=== PATIENT | female | born 1975 | race Caucasian/White ===

== ENCOUNTER 2018-02-08 15:56 | Inpatient (IN) ==
[2018-02-08] MEDS ORDERED: Acetaminophen 325 MG Tablet PO PRN (22:36)
--- NOTE | 2018-02-08 23:07 | P.HPIM ---
History of Present Illness Primary Care Physician: UNKNOWN History of Present Illness: 42-year-old female with a history of hypertension,'s anxiety and substance abuse was a transfer from [facility] accepted by Dr. Harrell to be evaluated by hand surgery for a left hand and forearm infection and abscess formation. Patient was treated at [facility] and had an I&D completed to the left hand, forearm and antecubital area after injecting opium, Dilaudid as well as cocaine into the site where the abscess formed. Cultures did grew Streptococcus pyogenes and MRSA, patient was treated with Zosyn and Zyvox. Patient examined on arrival and patient is complaining of 10/10, throbbing, constant pain the the left hand with radiation up her arm, worse with movement and better with pain medication, with associate fevers. Patient has a very nasty wound to the right hand with purulent drainage and some pin point necrotic areas. Denies any chest pain or sob. Inpatient Certification: I certify that the inpatient services were ordered in accordance with Medicare regulations governing the order. This includes certification that hospital inpatient services are reasonable and necessary and in the case of services not specified as inpatient-only under 42 CFR 419.22(n), that they are appropriately provided as inpatient services in accordance to with the 2-midnight benchmark under 43 CFR 412.3(e) Estimated Total Length of Stay (Days): 3 Plans for Post Hospital Care: Home [facility] - History History Provided By: Patient - Medical History Medical History: Medical History (Last Updated 02/08/18 @ 23:00 by BRANDON Rahman) Anxiety Genital herpes HTN (hypertension) History of hysterectomy Shingles Substance abuse - Surgical History Surgical History: Surgical History (Last Updated 02/08/18 @ 22:36 by BRANDON Rahman) History of cholecystectomy History of incision and drainage - Tobacco History Second Hand Smoke Exposure: Yes Tobacco Use In Past 30 Days: Yes Smoking Status: Current every day smoker Tobacco Type: Cigarettes - Alcohol History How Often Do You Have a Drink Containing Alcohol: Monthly or less - Substance Use History Substance History: Past History - Substance Use Type Crack/Cocaine Status: Sustained Remission Route Used: Inhalation Marijuana Status: Early Remission - Travel History Recent Travel in the [place] Within the Last 8 Weeks: No Recent Travel Out of the Country Within the Last 8 Weeks: No Medications and Allergies Allergies Allergy/AdvReac Type Severity Reaction Status Date / Time chocolate flavor [Chocolate] AdvReac Mild Rash Verified 02/08/18 23:38 latex AdvReac Mild Rash Verified 02/08/18 23:38 Home Medications Medication Instructions Recorded Confirmed Type ibuprofen 800 mg PO QID PRN 02/08/18 02/08/18 History Exam Vital signs: Intake & Output 02/08/18 02/08/18 02/09/18 06:59 18:59 06:59 Weight 64.9 kg Other: Weight On Admission 64.9 kg Narrative: GENERAL: This is a well-nourished, well-developed patient, who appears in pain. SKIN: Top left hand opened abscess with purulent drainage, multiple pin point necrotic areas CARDIOVASCULAR: Regular rate and rhythm without murmurs, gallops, or rubs. RESPIRATORY: Clear to auscultation. Breath sounds equal bilaterally. No wheezes , rales, or rhonchi. GASTROINTESTINAL: Abdomen soft, non-tender, nondistended. Normal active bowel sounds MUSCULOSKELETAL: Extremities without clubbing, cyanosis, or edema. NEURO: Alert & Oriented x4 to person, place, time, situation. Moves all ext x4 Caprini VTE Risk Assessment Caprini VTE Risk Assessment: Moderate/High Risk (score >= 2) Caprini Risk Assessment Model: Point Value = 1 Point Value = 2 Point Value = 3 Point Value = 5 Age 41-60 Minor surgery BMI > 25 kg/m2 Swollen legs Varicose veins or History of unexplained or recurrent spontaneous Oral contraceptives or hormone replacement Sepsis (< 1 month) Serious lung disease, including pneumonia (< 1 month) Abnormal pulmonary function Acute myocardial infarction Congestive heart failure (< 1 month) History of inflammatory bowel disease Medical patient at bed rest Age 61-74 Arthroscopic surgery Major open surgery (> 45 min) Laparoscopic surgery (> 45 min) Malignancy Confined to bed (> 72 hours) Immobilizing plaster cast Central venous access Age >= 75 History of VTE Family history of VTE Factor V Leiden Prothrombin [id number] Lupus anticoagulant Anticardiolipin antibodies Elevated serum homocysteine Heparin-induced thrombocytopenia Other congenital or acquired thrombophilia Stroke (< 1 month) Elective arthroplasty Hip, pelvis, or leg fracture Acute spinal cord injury (< 1 month) Prophylaxis Regimen: Total Risk Factor Score Risk Level Prophylaxis Regimen 0-1 Low Early ambulation 2 Moderate Order ONE of the following: *Sequential Compression Device (SCD) *Heparin 5000 units SQ BID 3-4 Higher Order ONE of the following medications: *Heparin 5000 units SQ TID *Enoxaparin/Lovenox 40 mg SQ daily (WT < 150 kg, CrCl > 30 mL/min) *Enoxaparin/Lovenox 30 mg SQ daily (WT < 150 kg, CrCl > 10-29 mL/min) *Enoxaparin/Lovenox 30 mg SQ BID (WT < 150 kg, CrCl > 30 mL/min) AND/OR *Sequential Compression Device (SCD) 5 or more Highest Order ONE of the following medications: *Heparin 5000 units SQ TID (Preferred with Epidurals) *Enoxaparin/Lovenox 40 mg SQ daily (WT < 150 kg, CrCl > 30 mL/min) *Enoxaparin/Lovenox 30 mg SQ daily (WT < 150 kg, CrCl > 10-29 mL/min) *Enoxaparin/Lovenox 30 mg SQ BID (WT < 150 kg, CrCl > 30 mL/min) AND *Sequential Compression Device (SCD) Assessment and Plan - Plan Right hand abscess, purulent drainage with some possible necrotic areas Requiring hand surgery evaluation, cultures grew Streptococcus pyogeneses and MRSA -Consult hand surgery -Continue IV antibiotics Zosyn, changed Zyvox to Vancomycin due to severity of wound -Blood cultures ordered -Pain management with p.o. Percocet and IV morphine -Labs in a.m. -Consult infectious disease -N.p.o., IVF -MRI ordered to r/o osteomyelitis Genital herpes -Patient so far has been treated with Valtrex for 3 days, continue p.o. Valtrex for 2 more days. Tobacco and substance abuse -Encouraged to quit -Cessation counseling DVT prophylaxis: scds, hold chemical until after surgery Discussed Condition With: Patient and RN H&P: Quality - VTE Deep Vein Thrombosis/Pulmonary Embolism Present on Admission: No
[2018-02-08] MEDS: valACYclovir 500 MG Tab PO SCH (23:28)
[2018-02-08] MEDS: Morphine Inj 4 MG/ML Vial IV.PUSH PRN (23:28)
[2018-02-08] MEDS: Sod Chloride 0.9% Inj 1,000 ML IV.CONT SCH (23:29)
[2018-02-08] MEDS: Piperacil/Tazo 3.375 GM Premix 50 ML IV.SIG SCH (23:33)
[2018-02-08] MEDS ORDERED: Vancomycin Consult Pharmacy OTHER SCH (23:37)
[2018-02-09] MEDS ORDERED: Vancomycin Inj 1,000 MG in Sodium Chlor 0.9% Inj 250 ML IV.SIG ONE ×2
[2018-02-09 00:50] LABS: Baso # (Auto) 0.1 th/mm3 (0.0-0.2); Baso % (Auto) 0.7 % (0.0-2.0); Eos # (Auto) 0.2 th/mm3 (0.0-0.4); Eos % (Auto) 2.1 % (0.0-4.0); Hematocrit 27.1 % (35.0-46.0); Hemoglobin 9.2 gm/dL (11.6-15.3); Lymph # (Auto) 3.7 th/mm3 (1.0-4.8); Lymph % (Auto) 33.2 % (9.0-44.0); Mean Corpuscular HGB Conc 34.1 % (32.0-36.0); Mean Corpuscular Hemoglobin 32.1 pg (27.0-34.0); Mean Corpuscular Volume 94.1 fL (80.0-100.0); Mean Platelet Volume 6.1 fL (7.0-11.0); Neut # (Auto) 6.1 th/mm3 (1.8-7.7); Platelet Count 780 th/mm3 (150-450); Red Blood Count 2.88 mil/mm3 (4.00-5.30); Red Cell Distribution Width 13.5 % (11.6-17.2); White Blood Count 11.1 th/mm3 (4.0-11.0)
[2018-02-09 01:18] LABS: Calcium 8.3 mg/dL (8.5-10.1); Carbon Dioxide 24.1 meq/L (21.0-32.0); Potassium 3.8 meq/L (3.5-5.1)
[2018-02-09] MEDS: Morphine Inj 4 MG/ML Vial IV.PUSH PRN ×4 (02:35→22:07)
[2018-02-09] MEDS: valACYclovir 500 MG Tab PO SCH ×3 (05:45→22:08)
[2018-02-09] MEDS: Piperacil/Tazo 3.375 GM Premix 50 ML IV.SIG SCH ×4 (06:22→22:08)
--- NOTE | 2018-02-09 09:10 | P.PNIM ---
Subjective Interval history: Complaining significant pain over the left arm and hand. Was over at [facility] since last Sunday states that orthopedic surgery took her to the OR for incision and drainage however area has not improved.. Physical Exam Vital signs: Vital Signs 02/09/18 00:00 02/09/18 01:13 02/09/18 04:00 Temperature 98.4 F 98.5 F Pulse Rate 82 80 Respiratory Rate 17 17 17 Blood Pressure 125/63 127/65 Pulse Oximetry 98 98 Intake & Output 02/08/18 02/09/18 02/09/18 18:59 06:59 18:59 Intake Total 300 / 300 50 / 50 Balance 300 / 300 50 / 50 Weight 64.3 kg Intake: IV 300 / 300 50 / 50 Zosyn 3.375 GM Premix 50 ML @ 50 / 50 50 / 50 100 mls/hr IV.SIG Q8H [facility] Rx#: [id number] Vancomycin Inj 1,000 MG In NS 250 / 250 Inj 250 ML @ 250 mls/hr IV.SIG ONCE ONE Rx#:[id number] Other: Date of Last Bowel Movement 02/15/18 Weight On Admission 64.9 kg Narrative: GENERAL: This is a well-nourished, well-developed patient, in no apparent distress. CARDIOVASCULAR: Regular rate and rhythm without murmurs, gallops, or rubs. RESPIRATORY: Clear to auscultation. Breath sounds equal bilaterally. No wheezes , rales, or rhonchi. GASTROINTESTINAL: Abdomen soft, non-tender, nondistended. Normal active bowel sounds MUSCULOSKELETAL: Bandage over the left upper arm and hand with necrotic skin changes throughout the left dorsum of the hand forearm NEURO: Alert & Oriented x4 to person, place, time, situation. Moves all ext x4 Results - Labs CBC & Chem 7: 02/09/18 00:20 02/09/18 00:20 Laboratory Results - last 24 hr 02/09/18 02/09/18 00:20 00:20 WBC 11.1 H RBC 2.88 L Hgb 9.2 L Hct 27.1 L MCV 94.1 MCH 32.1 MCHC 34.1 RDW 13.5 Plt Count 780 H MPV 6.1 L Neut % (Auto) 55.0 Lymph % (Auto) 33.2 Hudspeth % (Auto) 9.0 H Eos % (Auto) 2.1 Baso % (Auto) 0.7 Neut # (Auto) 6.1 Lymph # (Auto) 3.7 Hudspeth # (Auto) 1.0 H Eos # (Auto) 0.2 Baso # (Auto) 0.1 WBC Differential . Differential Comment Auto diff final Sodium 141 Potassium 3.8 Chloride 107 Carbon Dioxide 24.1 Anion Gap 10 BUN 11 Creatinine 0.91 Estimated GFR 68 L Random Glucose 98 Calcium 8.3 L Assessment and Plan - Plan 42-year-old white female with a history of IV drug abuse was transferred from [facility] after being evaluated for left hand and arm abscess with surgical incision and drainage by orthopedic surgeon sent to [place] for hand surgery evaluation. 1. Left hand and arm abscess, purulent drainage with necrotic areas Requiring hand surgery evaluation, previous cultures grew Streptococcus pyogeneses and MRSA -Consult hand surgery -Continue IV antibiotics Zosyn, changed previous Zyvox to Vancomycin -Blood cultures ordered -Pain management with p.o. Percocet and IV morphine -Consult infectious disease -N.p.o., IVF -MRI ordered to r/o osteomyelitis 2. Genital herpes -Patient so far has been treated with Valtrex for 3 days, continue p.o. Valtrex for 2 more days. 3. Tobacco and substance abuse -Encouraged to quit -Cessation counseling DVT prophylaxis: scds, hold chemical until after surgery
[2018-02-09] MEDS ORDERED: Vancomycin Consult Pharmacy 1 EACH OTHER SCH (09:15)
[2018-02-09] MEDS: oxyCODONE/Acetaminophen 10/325 Tablet PO PRN ×2 (09:41→20:20)
[2018-02-09] MEDS: Sod Chloride 0.9% Inj 1,000 ML IV.CONT SCH ×3 (09:41→20:17)
--- NOTE | 2018-02-09 11:29 | MB ---
cc: Jose Guadalupe Izquierdo MD DATE: 02/09/2018 REASON FOR CONSULTATION: Left hand infection. HISTORY OF PRESENT ILLNESS: The patient is a 42-year-old right-hand dominant female who was transferred from an outside facility, [facility], by Dr. Lu to [place] for hand surgery and evaluation of left hand infection. The patient states about a week ago she developed infection of the left upper extremity after a dresser fell on her hand. She was seen by orthopedics and had incision and drainage of left upper extremity abscesses. The patient was found to have necrotic skin over the dorsal aspect of the left hand. Because of the possibility of exposure of the extensor tendons on the dorsal aspect of the left hand she was transferred from [facility], accepted by Dr. Lu, for hand surgery evaluation at [place]. Complains of pain. She also complains of intermittent tingling and numbness involving the fingertips. Denies any fever. She also complains of disturbance of sleep. The patient also states her friend injected her with Dilaudid over the region for her help with the pain. PAST MEDICAL HISTORY: Noted significant for hypertension, anxiety, and she has a history of substance abuse. PAST SURGICAL HISTORY: Significant for hysterectomy. PHYSICAL EXAMINATION: GENERAL: The patient is alert, oriented x3. EXTREMITIES: Examination of left upper extremity reveals dressings across the left hand, wrist, and forearm. Examination after removal of dressing reveals necrotic skin over the dorsal aspect of the hand covering the entire dorsal aspect of the hand. Another patch of necrotic skin noted over the dorsal aspect of the wrist. She also has swelling and redness along the extensor carpi ulnaris tendon sheath. She also has sutured multiple incision and drainage wounds over the forearm and along the lateral aspect of the lower arm each measuring about 4-5 cm. Clear serous drainage noted from the incision sites. Purulence noted from the dorsal aspect of the hand region necrotic skin edges. She has swelling of the fingers with surrounding erythema. She has tenderness along the ECU tendon sheath. Wrist flexion and extension is associated with pain and is limited. On making a fist, she has limitation of flexion of the fingers and is unable to make a fist. She has intact extension of the fingers which is associated with pain. Forearm compartments appear to be supple. Elbow flexion is full and painless. Elbow extension is associated with the pain and is limited. LABORATORY DATA: Reviewed. She has a white count of 11.1 and a neutrophil shift of 55%. The patient is waiting for MRI scan of the left hand. ASSESSMENT: A 42-year-old female with necrotic skin over dorsal aspect of the left hand and wrist with infection status post multiple incision and drainage of the abscess of left forearm and elbow region. PLAN: I had a discussion with the patient regarding the necrotic skin over the dorsal aspect of the hand with a likely infection of the extensor tendons underneath. The patient was informed after debridement and possibility of extensor tendons will be exposed and she would need a wound VAC and flap with skin graft coverage of the wound after debridements. She does not have any evidence of compartment syndrome of the forearm. She would just need cleaning up of the I and D wounds of the forearm and arm. The patient also was informed about possibility of multiple procedures for her left hand and wrist. Risk and benefits of the procedure were explained to the patient. The patient is consented for incision and drainage, debridement of left hand and wrist. Continue with IV antibiotics. We will keep the patient n.p.o. Jose Guadalupe Izquierdo MD SE/cindy , 09:58 AM , 10:09 AM [email or web address]
[2018-02-09] MEDS ORDERED: Lidocaine PF 1% Inj 5 ML Syringe INFILTRATN ONE (12:00)
[2018-02-09] MEDS ORDERED: Vancomycin Inj 1,000 MG in Sodium Chlor 0.9% Inj 250 ML IV.SIG SCH (12:00)
[2018-02-09] MEDS ORDERED: Neomycin/Polymyxin G.U. Irrigant 1 ML Ampul ONE (13:14)
[2018-02-09] MEDS ORDERED: HYDROmorphone PF Inj 2 MG/ML Vial ONE (14:59)
[2018-02-09] MEDS ORDERED: fentaNYL Citrate Inj 100 MCG/2 ML Ampul ONE (15:08)
[2018-02-09] MEDS ORDERED: Morphine Inj 4 MG/ML Vial ONE (15:08)
--- NOTE | 2018-02-09 15:08 | P.OP ---
- Preoperative Diagnosis (1) Abscess of left hand including fingers (2) Abscess of tendon sheath, left forearm - Postoperative Diagnosis (1) Abscess of tendon sheath, left forearm (2) Abscess of left hand including fingers Postoperative Diagnosis: extensor tenosynovitis left forearm, wrist and hand 4th and 6th extensor compartments Date of procedure: 02/10/18 Procedure: exploration, incision and drainage, excisional debridement skin, subcutaneous tissue, extensor tenosynovium 4th and 6th compartments left hand /wrist and forearm Anesthesia: GETA, MAC, other (general with LMA) Surgeon: Jose Guadalupe Izquierdo MD Estimated blood loss (mL): 25 Tourniquet time (min): 55 Pathology: other (tissue for c/s)
[2018-02-09] MEDS ORDERED: *morphine SULFATE 4 MG/ML PERIprocedure ONLY ONE (15:23)
--- NOTE | 2018-02-09 17:02 | MP ---
cc: Jose Guadalupe Izquierdo MD DATE OF OPERATION: 02/09/2018 PREOPERATIVE DIAGNOSIS: Abscess, left hand and wrist. POSTOPERATIVE DIAGNOSIS: Abscess with necrotic tissues left hand with finger and left wrist and forearm with extensor tenosynovitis, fourth and sixth compartments. PROCEDURE: Incision and drainage and excisional debridement of skin and subcutaneous tissue and extensor tenosynovium 4th and 6th compartments left wrist/hand forearm and wound VAC application. SURGEON: Jose Guadalupe Izquierdo MD ANESTHESIA: General. ESTIMATED BLOOD LOSS: About 25 mL TOURNIQUET TIME: 55 minutes at 250 mmHg. SPECIMENS: Sent for culture and sensitivity from the left wrist region. INDICATIONS: The patient is a 42-year-old female transferred from an outside facility with complaints of abscess and infection of the left hand. The patient initially presented to the outside facility with pain, swelling involving the left upper extremity. She had incision and drainage of abscess of the forearm and arm. She was found to have necrosis of the dorsal aspect of the skin of the hand and she was transferred to [facility] for further management. The patient gives a history of injection of Dilaudid to the region by her friend. She also has a history of substance abuse. PHYSICAL EXAMINATION: She had necrosis of the dorsal aspect of the hand involving the whole surface under the necrotic wound over the dorsal aspect of the wrist. Multiple I and D's of the forearm with sutures were noted. She also had purulent drainage from the hand and wrist region. Range of motion of the fingers was limited and painful. The patient was consented for incision and drainage of left hand/wrist and forearm. The patient was explained the risks and benefits of the procedure. The patient was also informed that she would need multiple procedures including skin grafting and flap closure. DESCRIPTION OF PROCEDURE: The patient was brought to the operating room under general anesthesia. The left upper extremity was sterilely prepped and draped after an elevation, tourniquet inflated to 250 mmHg. Attention was initially directed to the wrist region. She had necrotic wound over the dorsal aspect of the wrist, which was excised. On exploration, there was evidence of involvement of the extensor tenosynovium and fourth compartment in the distal forearm. The extensor retinaculum was released partially at the proximal aspect and on further exploration, there was evidence of extensor tenosynovitis involving the fourth extensor compartment, which was debrided. There was extensive inflammatory tissue covering the extensor retinaculum extending all the way to the ulnar aspect of the wrist. There was also evidence of bulging of the extensor carpi ulnaris tendon compartment and so decision was made to release it at the distal aspect and there was minimal purulence within that region which was washed out. Attention was then directed to the hand region. There was extensive necrotic skin and subcutaneous tissue, which was excised on the whole of the dorsal aspect of the hand. Skin and subcutaneous tissue were necrosed. There is also evidence of purulent and devitalized tissue over the dorsal aspect of the hand extending over the dorsal aspect of the MP joints of the index, middle and ring fingers. Excisional debridement of necrotic tissue, which included skin, subcutaneous tissue and extensor tenosynovium was carried out. The middle finger extensor tendon was exposed toward the dorsal aspect of the hand. There was a bridge of skin left between the wrist and the hand wound, which was left intact. Thorough wash of the wounds were carried out using normal saline mixed with hydrogen peroxide. This was then followed by normal saline mixed with irrigant. About a liter of solution was used. Bleeding points were cauterized with bipolar cautery. Tourniquet was deflated and bleeding points were cauterized with bipolar cautery. The tourniquet was then reinflated after about 5-10 minutes for application of a wound VAC. Wound VAC was then applied including white foam and black foam and was held in place with a pressure of about 100 mmHg in a continuous fashion. Tourniquet was deflated at 55 minutes. She had good distal circulation of release of tourniquet. A Sof-Rol and Wayne wrap were applied over the hand and the forearm. The patient was recovered and sent to recovery in stable condition. We will continue with IV antibiotics. We will bring the patient tomorrow again for wash, debridement and wound VAC change. Jose Guadalupe Izquierdo MD SE/antonia , 03:15 PM , 03:27 PM SUSANNE
[2018-02-09] MEDS: Vancomycin Inj 1,000 MG in Sodium Chlor 0.9% Inj 250 ML IV.SIG SCH (17:13)
[2018-02-10] MEDS: oxyCODONE/Acetaminophen 10/325 Tablet PO PRN ×4 (00:10→22:34)
[2018-02-10] MEDS: Morphine Inj 4 MG/ML Vial IV.PUSH PRN ×4 (01:22→12:30)
[2018-02-10] MEDS: valACYclovir 500 MG Tab PO SCH ×2 (06:01→13:20)
[2018-02-10] MEDS: Piperacil/Tazo 3.375 GM Premix 50 ML IV.SIG SCH ×3 (06:02→22:34)
[2018-02-10] MEDS: Sod Chloride 0.9% Inj 1,000 ML IV.CONT SCH ×3 (06:04→22:35)
[2018-02-10] MEDS ORDERED: HYDROmorphone PF Inj 2 MG/ML Vial ONE (10:36)
[2018-02-10] MEDS ORDERED: Ketamine Inj 50 MG/5 ML Syringe IV.PUSH ONE (10:37)
--- NOTE | 2018-02-10 11:56 | P.PNIM ---
Subjective Interval history: Complaining a lot of pain Physical Exam Vital signs: Vital Signs 02/09/18 14:58 02/09/18 15:00 02/09/18 15:15 Temperature 98.5 F Pulse Rate 99 H 96 H 88 Respiratory Rate 12 20 24 Blood Pressure 144/77 H 134/77 131/61 Pulse Oximetry 95 98 95 02/09/18 15:40 02/09/18 15:59 02/09/18 16:29 Temperature 98.5 F Pulse Rate 80 Respiratory Rate 16 16 16 Blood Pressure 125/61 Pulse Oximetry 98 02/09/18 18:19 02/09/18 20:00 02/10/18 00:00 Temperature 97.9 F 97.6 F Pulse Rate 85 82 Respiratory Rate 16 18 18 Blood Pressure 138/71 146/78 H Pulse Oximetry 96 99 02/10/18 04:00 02/10/18 08:00 02/10/18 09:07 Temperature 98.3 F 98.7 F Pulse Rate 69 67 Respiratory Rate 18 20 16 Blood Pressure 118/58 L 103/51 L Pulse Oximetry 98 98 02/10/18 10:19 Temperature Pulse Rate Respiratory Rate 16 Blood Pressure Pulse Oximetry Intake & Output 02/09/18 02/10/18 02/10/18 18:59 06:59 18:59 Intake Total 3350 / 3350 2099 / 2099 Output Total 50 / 50 Balance 3300 / 3300 2099 / 2099 Weight 67.4 kg Intake: IV 2350 / 2350 2099 / 2100 NS Inj 1,000 ML @ 100 mls/hr IV 1999 / 1999 .CONT .Q10H [facility] Rx#:[id number] Zosyn 3.375 GM Premix 50 ML @ 100 / 100 100 / 100 100 mls/hr IV.SIG Q8H [facility] Rx#: [id number] Vancomycin Inj 1,000 MG In NS 250 / 250 Inj 250 ML @ 250 mls/hr IV.SIG Q18H [facility] Rx#:[id number] Anesthesia Amount 1000 / 1000 Output: Estimated Blood Loss 50 / 50 Other: Mode Setting Left Arm Continuous Continuous # Voids 2 Date of Last Bowel Movement 02/15/18 02/02/18 # Bowel Movements 1 Narrative: GENERAL: This is a well-nourished, well-developed patient, in no apparent distress. CARDIOVASCULAR: Regular rate and rhythm without murmurs, gallops, or rubs. RESPIRATORY: Clear to auscultation. Breath sounds equal bilaterally. No wheezes , rales, or rhonchi. GASTROINTESTINAL: Abdomen soft, non-tender, nondistended. Normal active bowel sounds MUSCULOSKELETAL: Bandage over the left upper arm and with wound VAC over the right dorsum of the hand NEURO: Alert & Oriented x4 to person, place, time, situation. Moves all ext x4 Results - Labs CBC & Chem 7: 02/09/18 00:20 02/09/18 00:20 Microbiology 02/09/18 00:29 Blood - Peripheral Aerobic Blood Culture - Preliminary No growth in 1 day 02/09/18 00:29 Blood - Peripheral Anaerobic Blood Culture - Preliminary No growth in 1 day 02/09/18 00:20 Blood - Peripheral Aerobic Blood Culture - Preliminary No growth in 1 day 02/09/18 00:20 Blood - Peripheral Anaerobic Blood Culture - Preliminary No growth in 1 day 02/09/18 13:35 Tissue - Wrist Gram Stain - Final Assessment and Plan - Plan 42-year-old white female with a history of IV drug abuse was transferred from [facility] after being evaluated for left hand and arm abscess with surgical incision and drainage by orthopedic surgeon sent to [place] for hand surgery evaluation. 1. Left hand and arm abscess, purulent drainage with necrotic areas Requiring hand surgery evaluation, previous cultures grew Streptococcus pyogeneses and MRSA -Consult hand surgery who performed the I&D yesterday -Continue IV antibiotics Zosyn, changed previous Zyvox to Vancomycin, await infectious disease consultation -Blood cultures ordered shows no growth to date -Pain management with p.o. Percocet and IV morphine -N.p.o. for re-debridement today, IVF 2. Genital herpes -Patient so far has been treated with Valtrex for 3 days, continue p.o. Valtrex for 2 more days. 3. Tobacco and substance abuse -Encouraged to quit -Cessation counseling DVT prophylaxis: scds, hold chemical until after surgery Discharge Planning: Transfer back to [facility] when cleared by hand surgery.
[2018-02-10] MEDS ORDERED: Lidocaine PF 1% Inj 5 ML Syringe INFILTRATN ONE (12:00)
[2018-02-10] MEDS: Vancomycin Inj 1,000 MG in Sodium Chlor 0.9% Inj 250 ML IV.SIG SCH (12:09)
--- NOTE | 2018-02-10 15:45 | P.CONID ---
History of Present Illness Service: Infectious disease Consult date: 02/10/18 Requesting Physician: Leila Rosario Reason for Consult: Evaluation and management of left hand infection Primary Care Provider: UNKNOWN History of Present Illness: Ms. Fitzgerald is a 42-year-old female with past medical history significant for hypertension, anxiety and substance abuse(denies any IV drug abuse but reports smoking and/or snorting different agents like cocaine and marijuana). With this background patient reports a piece of furniture fell on her hand and due to excruciating pain she let her friend inject intravenous Dilaudid into her left hand at the site of the injury. Subsequently this area of the hand became increasingly swollen red with areas of blackening and so she presented to the local hospital in [place] which is [facility]. Patient was accepted by Dr. Lu for transfer for hand surgery. Patient was evaluated by of hand surgery and underwent debridement in the operating room yesterday. In fact patient reports to me there is a plan for further debridement in the OR today. Intraoperative cultures are currently pending and patient has been started on empiric antibiotics. Prior to the patient arriving at [facility] she was treated with Zosyn as well as Zyvox at the other hospital. Infectious disease consulted for evaluation and management of left hand abscess , cellulitis possibly Tenosynovitis. Patient denies any prior drug abuse Denies any prior infection such as endocarditis or discitis. Denies any fevers chills or night sweats. Review of Systems All other systems reviewed negative except as stated in HPI PMFSH - History History Provided By: Patient - Medical History Medical History: Medical History (Last Updated 02/08/18 @ 23:00 by BRANDON Rahman) Abscess of left hand including fingers Anxiety HTN (hypertension) History of hysterectomy Shingles Substance abuse - Surgical History Surgical History: Surgical History (Last Updated 02/08/18 @ 22:36 by BRANDON Rahman) History of cholecystectomy History of incision and drainage - Tobacco History Second Hand Smoke Exposure: Yes Tobacco Use In Past 30 Days: Yes Smoking Status: Current every day smoker Tobacco Type: Cigarettes - Alcohol History How Often Do You Have a Drink Containing Alcohol: Monthly or less - Substance Use History Substance History: Past History - Substance Use Type Crack/Cocaine Status: Sustained Remission Route Used: Inhalation Marijuana Status: Early Remission - Travel History Recent Travel in the [place] Within the Last 8 Weeks: No Recent Travel Out of the Country Within the Last 8 Weeks: No Medications and Allergies Active Medications: Active Medications Acetaminophen (Tylenol) 650 mg PO Q4H PRN PRN Reason: Temp > 100.4 Sodium Chloride (Ns Inj) 1,000 mls @ 100 mls/hr IV.CONT .Q10H [facility] Last Admin: 02/10/18 06:04 Dose: 100 mls/hr Piperacillin/Tazobactam/Dextrose (Zosyn 3.375 Gm Premix) 50 mls @ 100 mls/hr IV.SIG Q8H [facility] Last Infusion: 02/10/18 06:46 Dose: Infused Vancomycin HCl 1,000 mg/ (Sodium Chloride) 250 mls @ 250 mls/hr IV.SIG Q18H [facility] Last Infusion: 02/10/18 13:18 Dose: Infused Miscellaneous Information ([facility] Ordered Lab Info) 1 each OTHER ONCE ONE Stop: 02/11/18 05:46 Morphine Sulfate (Morphine Inj) 4 mg IV.PUSH Q3H PRN PRN Reason: BREAKTHROUGH PAIN Last Admin: 02/10/18 12:30 Dose: 4 mg Ondansetron HCl (Zofran Inj) 4 mg IV.PUSH Q6H PRN PRN Reason: NAUSEA OR VOMITING Last Admin: 02/10/18 09:29 Dose: 4 mg Oxycodone/Acetaminophen (Percocet 10/325 Mg) 1 tab PO Q4H PRN PRN Reason: PAIN SCALE 1 TO 10 Last Admin: 02/10/18 08:02 Dose: 1 tab Pantoprazole Sodium (Protonix) 40 mg PO DAILY [facility] Last Admin: 02/10/18 08:02 Dose: 40 mg Pharmacy Profile Note (Vancomycin Consult Pharmacy) 1 each OTHER [facility] Sodium Chloride (Ns Flush) 2 ml IV.FLUSH PRN PRN PRN Reason: FLUSH AFTER USING IV ACCESS Sodium Chloride (Ns Flush) 2 ml IV.FLUSH BID [facility] Last Admin: 02/10/18 08:02 Dose: Not Given Valacyclovir HCl (Valtrex) 1,000 mg PO Q8HR [facility] Stop: 02/10/18 22:59 Last Admin: 02/10/18 13:20 Dose: Not Given Allergies Allergy/AdvReac Type Severity Reaction Status Date / Time chocolate flavor [Chocolate] AdvReac Mild Rash Verified 02/08/18 23:38 latex AdvReac Mild Rash Verified 02/08/18 23:38 Home Medications Medication Instructions Recorded Confirmed Type ibuprofen 800 mg PO QID PRN 02/08/18 02/08/18 History Exam Vital signs: Vital Signs 02/09/18 15:59 02/09/18 16:29 02/09/18 18:19 Temperature Pulse Rate Respiratory Rate 16 16 16 Blood Pressure Pulse Oximetry 02/09/18 20:00 02/10/18 00:00 02/10/18 04:00 Temperature 97.9 F 97.6 F 98.3 F Pulse Rate 85 82 69 Respiratory Rate 18 18 18 Blood Pressure 138/71 146/78 H 118/58 L Pulse Oximetry 96 99 98 02/10/18 08:00 02/10/18 09:07 02/10/18 10:19 Temperature 98.7 F Pulse Rate 67 Respiratory Rate 20 16 16 Blood Pressure 103/51 L Pulse Oximetry 98 02/10/18 13:04 Temperature Pulse Rate Respiratory Rate 16 Blood Pressure Pulse Oximetry Intake & Output 02/09/18 02/10/18 02/10/18 18:59 06:59 18:59 Intake Total 3350 / 3350 2099 / 2100 250 / 250 Output Total 50 / 50 Balance 3300 / 3300 2100 / 2100 250 / 250 Weight 67.4 kg Intake: IV 2350 / 2350 2100 / 2100 250 / 250 NS Inj 1,000 ML @ 100 mls/hr IV 1999 / 1999 .CONT .Q10H [facility] Rx#:[id number] Zosyn 3.375 GM Premix 50 ML @ 100 / 100 100 / 100 100 mls/hr IV.SIG Q8H [facility] Rx#: [id number] Vancomycin Inj 1,000 MG In NS 250 / 250 250 / 250 Inj 250 ML @ 250 mls/hr IV.SIG Q18H [facility] Rx#:[id number] Anesthesia Amount 1000 / 1000 Output: Estimated Blood Loss 50 / 50 Other: Mode Setting Left Arm Continuous Continuous Continuous # Voids 2 Date of Last Bowel Movement 02/15/18 02/02/18 02/10/18 # Bowel Movements 1 Narrative: GENERAL: Well-nourished well-developed, not in acute distress SKIN: Cool and dry, no generalized rash HEAD: Atraumatic. Normocephalic. No temporal or scalp tenderness. EYES: Pupils equal round and reactive. Scleral icterus. No injection or drainage. No petechia ENT: Nothing abnormal detected NECK: Trachea midline. Supple, nontender, no meningeal signs. CARDIOVASCULAR: HS audible. RESPIRATORY: Clear to auscultation bilaterally. GASTROINTESTINAL: Abdomen soft nontender. MUSCULOSKELETAL: Left upper extremity and postop dressing NEUROLOGICAL: Alert oriented 3. Nonfocal. Psych cooperative IV line sites ok. Results - Labs CBC & Chem 7: 02/09/18 00:20 02/09/18 00:20 Assessment and Plan - Plan Left hand abscess/cellulitis Possible infected tenosynovitis Substance abuse Recommendations: Continue Zosyn IV Continue Zyvox Please obtain medical records from [facility] to see if there are any bedside I&D procedure related cultures that can help guide his therapy at this point since patient is already on very broad-spectrum antibiotics. Follow intraoperative cultures Follow clinically Case discussed with Dr. Hernandez: preop pictures shown to me. Will need multiple debridements. dw Patient. She lives with her aunt presently. Patient's mother lives in [place] and patient hopes to join her after the completion of this medical therapy.
[2018-02-10] MEDS ORDERED: Neomycin/Polymyxin G.U. Irrigant 1 ML Ampul ONE (17:37)
--- NOTE | 2018-02-10 19:59 | P.OP ---
- Preoperative Diagnosis (1) Abscess of tendon sheath, left forearm (2) Abscess of left hand including fingers - Postoperative Diagnosis (1) Abscess of tendon sheath, left forearm (2) Abscess of left hand including fingers Date of procedure: 02/10/18 Procedure: wash, excisional debridement skin, subcutaneous tissue, extensor tenosynovium, wound vac change left wrist and hand Anesthesia: GETA Surgeon: Jose Guadalupe Izquierdo MD Estimated blood loss (mL): 5 Tourniquet time (min): 34 Pathology: none sent Operation and Findings: minimal necrotic/devitalized tissue extensor tenosynovitis minimal
[2018-02-10] MEDS ORDERED: fentaNYL Citrate Inj 100 MCG/2 ML Ampul ONE ×2 (20:09→20:10)
--- NOTE | 2018-02-10 22:43 | MP ---
cc: Jose Guadalupe Izquierdo MD DATE OF OPERATION: 02/10/2018 PREOPERATIVE DIAGNOSIS: Abscess, left hand/wrist, with extensor tenosynovitis of the left wrist and hand. POSTOPERATIVE DIAGNOSIS: Abscess, left hand/wrist, with extensor tenosynovitis. PROCEDURE PERFORMED: Excisional debridement and wound vacuum change, left wrist and hand. SURGEON: Jose Guadalupe Izquierdo MD ANESTHESIA: General. ESTIMATED BLOOD LOSS: Minimal. TOURNIQUET TIME: 34 minutes at 250 mmHg. PLASMA PROCESSING TECHNICIAN: Ruth, medical student 3. DISPOSITION: To PACU stable. INDICATIONS: The patient is a 42-year-old female status post excisional debridement of necrotic tissue and extensor tenosynovectomy, left wrist and hand, yesterday and was brought in today for repeat wash, debridement and wound VAC change. The patient initially presented with necrotic skin over the dorsal aspect of the left hand and wrist and underwent excisional debridement and extensor tenosynovectomy yesterday. She was explained the risks and benefits of the procedure. PROCEDURE IN DETAIL: The patient was brought to the operating room. Under general anesthesia, the left upper extremity was sterilely prepped and draped. The previously placed wound VAC was removed and the part was sterilely prepped and draped. After limb elevation, the tourniquet was inflated to 250 mmHg. Intraoperative findings included granulation tissue forming over the dorsal aspect of the hand and over the wrist joint region. There was evidence of exposed extensor tendon involving the middle finger over the dorsal aspect of the hand and exposed extensor tendons of the fourth compartment of the wrist joint just proximal to the extensor retinaculum. Minimal necrotic tissue and devitalized tissue was noted in the region, which was rongeured. Excisional debridement of devitalized tissue and necrotic tissue was carried out from the skin, subcutaneous tissue and extensor tenosynovium. Very minimal purulence was noted. A thorough wash of the wounds was carried out using normal saline mixed with hydrogen peroxide and then normal saline mixed with irrigant. About a liter of solution was used. Bleeding points were cauterized with bipolar cautery. The wound VAC was then applied using a black sponge. The tourniquet was deflated at 34 minutes. She had good distal circulation on release of the tourniquet. The wound VAC was held in place by Sof-Rol and bias hand wrap. The pressure setting was set at 100 mmHg in a continuous fashion. The patient was recovered and sent to recovery in stable condition. We will plan on changing the wound VAC in 2-3 days' time. We will continue with limb elevation and IV antibiotics based on ID recommendations and finger range of motion exercises. Jose Guadalupe Izquierdo MD SE/brissa/ann , 08:03 PM , 08:12 PM [email or web address]
[2018-02-11 00:40] LABS: Alanine Aminotransferase 23 U/L (10-53); Albumin 2.8 g/dL (3.4-5.0); Anion Gap 8 meq/L (5-15); Aspartate Aminotransferase 18 U/L (15-37); Blood Urea Nitrogen 9 mg/dL (7-18); Calcium 8.3 mg/dL (8.5-10.1); Carbon Dioxide 24.1 meq/L (21.0-32.0); Chloride 106 meq/L (98-107); Glomerular Filtration Rate 72 mL/min (>89); Glucose,Random 106 mg/dL (74-106); Potassium 4.2 meq/L (3.5-5.1); Sodium 138 meq/L (136-145)
[2018-02-11 00:43] LABS: Alkaline Phosphatase 71 U/L (45-117); Total Protein 7.1 g/dL (6.4-8.2)
[2018-02-11] MEDS: Sod Chloride 0.9% Inj 1,000 ML IV.CONT SCH ×3 (00:48→21:20)
[2018-02-11] MEDS: Morphine Inj 4 MG/ML Vial IV.PUSH PRN ×6 (00:50→21:12)
[2018-02-11 01:43] LABS: Hepatitis A IgM Antibody Nonreactive (Nonreactive); Hepatitits B Surface Antigen Nonreactive (Nonreactive)
[2018-02-11] MEDS: oxyCODONE/Acetaminophen 10/325 Tablet PO PRN ×6 (02:37→23:20)
[2018-02-11] MEDS ORDERED: Pharmacy Ordered Lab Info OTHER ONE (05:45)
[2018-02-11] MEDS: Piperacil/Tazo 3.375 GM Premix 50 ML IV.SIG SCH ×3 (06:13→23:21)
[2018-02-11] MEDS: Vancomycin Inj 1,000 MG in Sodium Chlor 0.9% Inj 250 ML IV.SIG SCH (06:13)
--- NOTE | 2018-02-11 12:57 | P.PNIM ---
Subjective Interval history: 42-year-old female with a history of hypertension,'s anxiety and substance abuse was a transfer from [facility] accepted by Dr. Harrell to be evaluated by hand surgery for a left hand and forearm infection and abscess formation. Patient was treated at [facility] and had an I&D completed to the left hand, forearm and antecubital area after injecting opium, Dilaudid as well as cocaine into the site where the abscess formed. Cultures did grew Streptococcus pyogenes and MRSA, patient was treated with Zosyn and Zyvox. Patient examined on arrival and patient is complaining of 10/10, throbbing, constant pain the the left hand with radiation up her arm, worse with movement and better with pain medication, with associate fevers. Patient has a very nasty wound to the right hand with purulent drainage and some pin point necrotic areas. Denies any chest pain or sob. 8-18 Complaining significant pain over the left arm and hand. Was over at [facility] since last Sunday states that orthopedic surgery took her to the OR for incision and drainage however area has not improved.. 8- Complaining a lot of pain 8-[address] ON LEFT HAND WANT NICOTINE PATCH STATES SMOKES A PACK A DAY AM LABS DW RN AND PT AND CM Physical Exam Vital signs: Vital Signs 02/10/18 13:04 02/10/18 16:00 02/10/18 20:06 Temperature 99 F 98.2 F Pulse Rate 78 88 Respiratory Rate 16 20 28 H Blood Pressure 137/70 141/78 H Pulse Oximetry 96 92 L 02/10/18 20:15 02/10/18 20:30 02/10/18 20:45 Temperature Pulse Rate 82 88 82 Respiratory Rate 20 16 16 Blood Pressure 144/85 H 155/78 H 145/72 H Pulse Oximetry 93 L 94 L 94 L 02/10/18 21:00 02/10/18 21:37 02/10/18 23:39 Temperature 98 F 98.4 F Pulse Rate 81 85 Respiratory Rate 16 18 18 Blood Pressure 139/72 143/82 H Pulse Oximetry 94 L 96 02/11/18 00:00 02/11/18 04:00 02/11/18 08:20 Temperature 98.0 F 98.6 F Pulse Rate 81 66 67 Respiratory Rate 18 18 18 Blood Pressure 142/80 H 126/60 123/60 Pulse Oximetry 98 97 97 02/11/18 10:12 Temperature 98.2 F Pulse Rate Respiratory Rate Blood Pressure Pulse Oximetry Intake & Output 02/10/18 02/11/18 02/11/18 18:59 06:59 18:59 Intake Total 1300 / 1300 50 / 50 1800 / 1800 Output Total 500 / 500 Balance 1300 / 1300 -450 / -450 1800 / 1800 Weight 69.6 kg Intake: IV 1300 / 1300 50 / 50 1300 / 1300 NS Inj 1,000 ML @ 100 mls/hr IV 1000 / 1000 1000 / 1000 .CONT .Q10H [facility] Rx#:[id number] Zosyn 3.375 GM Premix 50 ML @ 50 / 50 50 / 50 50 / 50 100 mls/hr IV.SIG Q8H [facility] Rx#: [id number] Vancomycin Inj 1,000 MG In NS 250 / 250 250 / 250 Inj 250 ML @ 250 mls/hr IV.SIG Q18H [facility] Rx#:[id number] Oral 500 / 500 Output: Urine 500 / 500 Other: Mode Setting Left Arm Continuous Continuous Continuous # Voids 3 Date of Last Bowel Movement 02/10/18 02/09/18 # Bowel Movements 2 Narrative: GENERAL: This is a well-nourished, well-developed patient, in no apparent distress. CARDIOVASCULAR: Regular rate and rhythm without murmurs, gallops, or rubs. RESPIRATORY: Clear to auscultation. Breath sounds equal bilaterally. No wheezes , rales, or rhonchi. GASTROINTESTINAL: Abdomen soft, non-tender, nondistended. Normal active bowel sounds MUSCULOSKELETAL: Bandage over the left upper arm and with wound VAC over the right dorsum of the hand NEURO: Alert & Oriented x4 to person, place, time, situation. Moves all ext x4 Results - Labs CBC & Chem 7: 02/09/18 00:20 02/11/18 00:12 Laboratory Results - last 24 hr 02/11/18 02/11/18 02/11/18 00:12 00:12 05:45 Sodium 138 Potassium 4.2 Chloride 106 Carbon Dioxide 24.1 Anion Gap 8 BUN 9 Creatinine 0.86 Estimated GFR 72 L Random Glucose 106 Calcium 8.3 L Total Bilirubin 0.2 AST 18 ALT 23 Alkaline Phosphatase 71 C-Reactive Protein 0.40 H Total Protein 7.1 Albumin 2.8 L Vancomycin Trough 5.5 Hepatitis A IgM Ab Nonreactive Hep Bs Antigen Nonreactive Hep B Core IgM Ab Nonreactive Hep C IgG Ab Nonreactive Microbiology 02/09/18 00:29 Blood - Peripheral Aerobic Blood Culture - Preliminary No growth in 2 days 02/09/18 00:29 Blood - Peripheral Anaerobic Blood Culture - Preliminary No growth in 2 days 02/09/18 00:20 Blood - Peripheral Aerobic Blood Culture - Preliminary No growth in 2 days 02/09/18 00:20 Blood - Peripheral Anaerobic Blood Culture - Preliminary No growth in 2 days 02/09/18 13:35 Tissue - Wrist Gram Stain - Final 02/09/18 13:35 Tissue - Wrist Wound Culture - Preliminary No growth in 48 hours 02/09/18 13:35 Tissue - Wrist Fungal Smear - Final No fungal elements seen 02/09/18 13:35 Tissue - Wrist Acid Fast Bacilli Smear - Final No acid fast bacilli seen Assessment and Plan - Plan 42-year-old white female with a history of IV drug abuse was transferred from [facility] after being evaluated for left hand and arm abscess with surgical incision and drainage by orthopedic surgeon sent to [place] for hand surgery evaluation. 1. Left hand and arm abscess, purulent drainage with necrotic areas Requiring hand surgery evaluation, previous cultures grew Streptococcus pyogeneses and MRSA -Consult hand surgery who performed the I&D yesterday -Continue IV antibiotics Zosyn, changed previous Zyvox to Vancomycin, await infectious disease consultation -Blood cultures ordered shows no growth to date -Pain management with p.o. Percocet and IV morphine -N.p.o. for re-debridement today, IVF 2. Genital herpes -Patient so far has been treated with Valtrex for 3 days, continue p.o. Valtrex for 2 more days. 3. Tobacco and substance abuse -Encouraged to quit -Cessation counseling NICODERM PATCH DVT prophylaxis: scds, hold chemical until after surgery Discharge Planning: Transfer back to [facility] when cleared by hand surgery. Code Status: FULL CODE Discussed Condition With: RN AND PT AND CM Discharge Planning: ONCE CLEARED BY HAND SURGERY
--- NOTE | 2018-02-11 16:13 | P.PNID ---
Subjective Remarks: Ms. Fitzgerald is a 42-year-old female with past medical history significant for hypertension, anxiety and substance abuse(denies any IV drug abuse but reports smoking and/or snorting different agents like cocaine and marijuana). With this background patient reports a piece of furniture fell on her hand and due to excruciating pain she let her friend inject intravenous Dilaudid into her left hand at the site of the injury. Subsequently this area of the hand became increasingly swollen red with areas of blackening and so she presented to the local hospital in [place] which is [facility]. Patient was accepted by Dr. Lu for transfer for hand surgery. Patient was evaluated by of hand surgery and underwent debridement in the operating room yesterday. In fact patient reports to me there is a plan for further debridement in the OR today. Intraoperative cultures are currently pending and patient has been started on empiric antibiotics. Prior to the patient arriving at [facility] she was treated with Zosyn as well as Zyvox at the other hospital. Infectious disease consulted for evaluation and management of left hand abscess , cellulitis possibly Tenosynovitis. Patient denies any prior drug abuse Denies any prior infection such as endocarditis or discitis. Denies any fevers chills or night sweats. Medical History: Abscess of left hand including fingers Anxiety HTN (hypertension) History of hysterectomy Shingles Substance abuse Surgical History: Surgical History History of cholecystectomy History of incision and drainage Overnight events reviewed No fevers No rash No diarrhea Able to wiggle fingers. Reviewed medical records from [place]: Patient admitted to IV drugs at other hospital. Cultures intraop from multiple I&Ds: Strep pyogens, Strep Angionosus, Prevotella , MRSA. Antibiotics: Zosyn IV Zyvox Lines: Lines ok Past Medical History: reviewed Allergies/Adverse Reactions: Allergies chocolate flavor [Chocolate] Adverse Reaction (Mild, Verified 02/08/18 23:38) Rash latex Adverse Reaction (Mild, Verified 02/08/18 23:38) Rash Objective Vital Signs 02/10/18 20:06 02/10/18 20:15 02/10/18 20:30 Temperature 98.2 F Pulse Rate 88 82 88 Respiratory Rate 28 H 20 16 Blood Pressure 141/78 H 144/85 H 155/78 H Pulse Oximetry 92 L 93 L 94 L 02/10/18 20:45 02/10/18 21:00 02/10/18 21:37 Temperature 98 F 98.4 F Pulse Rate 82 81 85 Respiratory Rate 16 16 18 Blood Pressure 145/72 H 139/72 143/82 H Pulse Oximetry 94 L 94 L 96 02/10/18 23:39 02/11/18 00:00 02/11/18 04:00 Temperature 98.0 F 98.6 F Pulse Rate 81 66 Respiratory Rate 18 18 18 Blood Pressure 142/80 H 126/60 Pulse Oximetry 98 97 02/11/18 08:20 02/11/18 10:12 02/11/18 12:00 Temperature 98.2 F 97.3 F L Pulse Rate 67 75 Respiratory Rate 18 16 Blood Pressure 123/60 120/66 Pulse Oximetry 97 94 L Intake & Output 02/10/18 02/11/18 02/11/18 18:59 06:59 18:59 Intake Total 1300 / 1300 50 / 50 1850 / 1850 Output Total 500 / 500 Balance 1300 / 1300 -450 / -450 1850 / 1850 Weight 69.6 kg Intake: IV 1300 / 1300 50 / 50 1350 / 1350 NS Inj 1,000 ML @ 100 mls/hr IV 1000 / 1000 1000 / 1000 .CONT .Q10H [facility] Rx#:[id number] Zosyn 3.375 GM Premix 50 ML @ 50 / 50 50 / 50 100 / 100 100 mls/hr IV.SIG Q8H [facility] Rx#: [id number] Vancomycin Inj 1,000 MG In NS 250 / 250 250 / 250 Inj 250 ML @ 250 mls/hr IV.SIG Q18H [facility] Rx#:[id number] Oral 500 / 500 Output: Urine 500 / 500 Other: Mode Setting Left Arm Continuous Continuous Continuous # Voids 3 Date of Last Bowel Movement 02/10/18 02/09/18 # Bowel Movements 2 02/09/18 00:29 Blood - Peripheral Aerobic Blood Culture - Preliminary No growth in 2 days 02/09/18 00:29 Blood - Peripheral Anaerobic Blood Culture - Preliminary No growth in 2 days 02/09/18 00:20 Blood - Peripheral Aerobic Blood Culture - Preliminary No growth in 2 days 02/09/18 00:20 Blood - Peripheral Anaerobic Blood Culture - Preliminary No growth in 2 days 02/09/18 13:35 Tissue - Wrist Gram Stain - Final 02/09/18 13:35 Tissue - Wrist Wound Culture - Preliminary No growth in 48 hours 02/09/18 13:35 Tissue - Wrist Fungal Smear - Final No fungal elements seen 02/09/18 13:35 Tissue - Wrist Fungal Culture - Pending 02/09/18 13:35 Tissue - Wrist Acid Fast Bacilli Smear - Final No acid fast bacilli seen 02/09/18 13:35 Tissue - Wrist Mycobacterial Culture - Pending Lab - Chemistry Results 02/11/18 00:12 Sodium 138 Potassium 4.2 Chloride 106 Carbon Dioxide 24.1 Anion Gap 8 BUN 9 Creatinine 0.86 Estimated GFR 72 L Random Glucose 106 Calcium 8.3 L Total Bilirubin 0.2 AST 18 ALT 23 Alkaline Phosphatase 71 C-Reactive Protein 0.40 H Total Protein 7.1 Albumin 2.8 L Imaging: reviewed Physical Exam: GENERAL: Well-nourished well-developed, not in acute distress SKIN: Cool and dry, no generalized rash HEAD: Atraumatic. Normocephalic. No temporal or scalp tenderness. EYES: Pupils equal round and reactive. Scleral icterus. No injection or drainage. No petechia ENT: Nothing abnormal detected NECK: Trachea midline. Supple, nontender, no meningeal signs. CARDIOVASCULAR: HS audible. RESPIRATORY: Clear to auscultation bilaterally. GASTROINTESTINAL: Abdomen soft nontender. MUSCULOSKELETAL: Left hand in postop dressing able to wiggle fingers. NEUROLOGICAL: Alert oriented 3. Nonfocal. Psych cooperative IV line sites ok. Assessment and Plan - Plan Left hand abscess/cellulitis Infected tenosynovitis per triny Schwab Hand surgeon Substance abuse Cultures intraop from multiple I&Ds: Strep pyogens, Strep Angionosus, Prevotella , MRSA. Recommendations: Continue Zosyn IV Continue Zyvox Follow intraoperative cultures Follow clinically Case discussed with Dr. Hernandez: Will need multiple debridements and plastics flap. triny Patient. She lives with her aunt presently. Patient's mother lives in [place] and patient hopes to join her after the completion of this medical therapy.
[2018-02-11 16:32] LABS: Magnesium 1.8 mg/dL (1.5-2.5)
[2018-02-11 16:42] LABS: Free T4 (Free Thyroxine) 0.97 ng/dL (0.76-1.46); Thyroid Stimulating Hormone 1.61 uIU/mL (0.358-3.740)
[2018-02-11 16:59] LABS: Hemoglobin A1c 5.5 % (4.3-6.0)
[2018-02-11] MEDS: Vancomycin Inj 1,250 MG in Sodium Chlor 0.9% Inj 250 ML IV.SIG SCH (17:56)
[2018-02-11 19:14] LABS: Hepatitits B Surface Antigen Nonreactive (Nonreactive)
[2018-02-11 19:45] LABS: Hepatitis A IgM Antibody Nonreactive (Nonreactive)
[2018-02-12] MEDS: Morphine Inj 4 MG/ML Vial IV.PUSH PRN ×6 (01:07→22:25)
[2018-02-12] MEDS: oxyCODONE/Acetaminophen 10/325 Tablet PO PRN ×4 (06:26→20:25)
[2018-02-12] MEDS: Sod Chloride 0.9% Inj 1,000 ML IV.CONT SCH ×2 (06:26→17:25)
[2018-02-12] MEDS: Piperacil/Tazo 3.375 GM Premix 50 ML IV.SIG SCH ×2 (06:26→15:53)
--- NOTE | 2018-02-12 11:17 | P.PNID ---
Subjective Remarks: Ms. Fitzgerald is a 42-year-old female with past medical history significant for hypertension, anxiety and substance abuse(denies any IV drug abuse but reports smoking and/or snorting different agents like cocaine and marijuana). With this background patient reports a piece of furniture fell on her hand and due to excruciating pain she let her friend inject intravenous Dilaudid into her left hand at the site of the injury. Subsequently this area of the hand became increasingly swollen red with areas of blackening and so she presented to the local hospital in [place] which is [facility]. Patient was accepted by Dr. Lu for transfer for hand surgery. Patient was evaluated by of hand surgery and underwent debridement in the operating room yesterday. In fact patient reports to me there is a plan for further debridement in the OR today. Intraoperative cultures are currently pending and patient has been started on empiric antibiotics. Prior to the patient arriving at [facility] she was treated with Zosyn as well as Zyvox at the other hospital. Infectious disease consulted for evaluation and management of left hand abscess , cellulitis possibly Tenosynovitis. Patient denies any prior drug abuse Denies any prior infection such as endocarditis or discitis. Denies any fevers chills or night sweats. Medical History: Abscess of left hand including fingers Anxiety HTN (hypertension) History of hysterectomy Shingles Substance abuse Surgical History: Surgical History History of cholecystectomy History of incision and drainage Overnight events reviewed No fevers No rash No diarrhea Able to wiggle fingers. Reviewed medical records from [facility]: Patient admitted to IV drugs at other hospital. Cultures intraop from multiple I&Ds: Strep pyogens, Strep Angionosus, Prevotella , MRSA. Antibiotics: Zosyn IV Zyvox Lines: Lines ok Past Medical History: reviewed Allergies/Adverse Reactions: Allergies chocolate flavor [Chocolate] Adverse Reaction (Mild, Verified 02/08/18 23:38) Rash latex Adverse Reaction (Mild, Verified 02/08/18 23:38) Rash Objective Vital Signs 02/11/18 12:00 02/11/18 16:00 02/11/18 19:40 Temperature 97.3 F L 97.5 F L 98.3 F Pulse Rate 75 93 H 89 Respiratory Rate 16 16 16 Blood Pressure 120/66 119/60 141/66 H Pulse Oximetry 94 L 96 97 02/11/18 23:20 02/12/18 03:34 02/12/18 06:56 Temperature 98.7 F 98.2 F Pulse Rate 83 81 Respiratory Rate 18 18 18 Blood Pressure 149/67 H 117/56 L Pulse Oximetry 98 98 02/12/18 10:11 Temperature 98.2 F Pulse Rate 74 Respiratory Rate 18 Blood Pressure 146/65 H Pulse Oximetry 100 Intake & Output 02/11/18 02/12/18 02/12/18 18:59 06:59 18:59 Intake Total 1850 / 1850 3112.5 / 3112.5 Balance 1850 / 1850 3112.5 / 3112.5 Weight 69.1 kg Intake: IV 1350 / 1350 2362.5 / 2362.5 NS Inj 1,000 ML @ 100 mls/hr IV 1000 / 1000 2000 / 2000 .CONT .Q10H [facility] Rx#:[id number] Zosyn 3.375 GM Premix 50 ML @ 100 / 100 100 / 100 100 mls/hr IV.SIG Q8H [facility] Rx#: [id number] Vancomycin Inj 1,000 MG In NS 250 / 250 Inj 250 ML @ 250 mls/hr IV.SIG Q18H [facility] Rx#:[id number] Vancomycin Inj 1,250 MG In NS 262.5 / 262.5 Inj 250 ML @ 250 mls/hr IV.SIG Q18H [facility] Rx#:[id number] Oral 500 / 500 750 / 750 Other: Mode Setting Left Arm Continuous Continuous # Voids 5 Date of Last Bowel Movement 02/12/18 # Bowel Movements 4 02/09/18 00:29 Blood - Peripheral Aerobic Blood Culture - Preliminary No growth in 3 days 02/09/18 00:29 Blood - Peripheral Anaerobic Blood Culture - Preliminary No growth in 3 days 02/09/18 00:20 Blood - Peripheral Aerobic Blood Culture - Preliminary No growth in 3 days 02/09/18 00:20 Blood - Peripheral Anaerobic Blood Culture - Preliminary No growth in 3 days 02/09/18 13:35 Tissue - Wrist Gram Stain - Final 02/09/18 13:35 Tissue - Wrist Wound Culture - Final No growth in 72 hours (aerobically and anaerobically ) 02/09/18 13:35 Tissue - Wrist Fungal Smear - Final No fungal elements seen 02/09/18 13:35 Tissue - Wrist Fungal Culture - Pending 02/09/18 13:35 Tissue - Wrist Acid Fast Bacilli Smear - Final No acid fast bacilli seen 02/09/18 13:35 Tissue - Wrist Mycobacterial Culture - Pending Lab - Chemistry Results 02/11/18 02/11/18 02/11/18 00:12 15:21 15:21 Sodium 138 Potassium 4.2 Chloride 106 Carbon Dioxide 24.1 Anion Gap 8 BUN 9 Creatinine 0.86 Estimated GFR 72 L Random Glucose 106 Hemoglobin A1c 5.5 Calcium 8.3 L Phosphorus 5.0 H Magnesium 1.8 Total Bilirubin 0.2 AST 18 ALT 23 Alkaline Phosphatase 71 C-Reactive Protein 0.40 H Total Protein 7.1 Albumin 2.8 L TSH 1.610 Free T4 0.97 Physical Exam: GENERAL: Well-nourished well-developed, not in acute distress SKIN: Cool and dry, no generalized rash HEAD: Atraumatic. Normocephalic. No temporal or scalp tenderness. EYES: Pupils equal round and reactive. Scleral icterus. No injection or drainage. No petechia ENT: Nothing abnormal detected NECK: Trachea midline. Supple, nontender, no meningeal signs. CARDIOVASCULAR: HS audible. RESPIRATORY: Clear to auscultation bilaterally. GASTROINTESTINAL: Abdomen soft nontender. MUSCULOSKELETAL: Left hand in postop dressing able to wiggle fingers. NEUROLOGICAL: Alert oriented 3. Nonfocal. Psych cooperative IV line sites ok. Assessment and Plan - Plan Left hand abscess/cellulitis Infected tenosynovitis per triny Schwab Hand surgeon Substance abuse Cultures intraop from multiple I&Ds: Strep pyogens, Strep Angionosus, Prevotella , MRSA. Recommendations: Continue Zosyn IV Continue IV Zyvox Follow intraoperative cultures Follow clinically
[2018-02-12] MEDS: Vancomycin Inj 1,250 MG in Sodium Chlor 0.9% Inj 250 ML IV.SIG SCH (12:43)
[2018-02-12 14:17] LABS: Baso # (Auto) 0.1 th/mm3 (0.0-0.2); Baso % (Auto) 1.2 % (0.0-2.0); Eos # (Auto) 0.3 th/mm3 (0.0-0.4); Eos % (Auto) 2.3 % (0.0-4.0); Lymph % (Auto) 43.2 % (9.0-44.0); Mean Corpuscular Hemoglobin 32.8 pg (27.0-34.0); Mean Corpuscular Volume 99.7 fL (80.0-100.0); Mean Platelet Volume 6.1 fL (7.0-11.0); Mono # (Auto) 1.2 th/mm3 (0.0-0.9); Mono % (Auto) 10.5 % (0.0-8.0); Neut # (Auto) 4.9 th/mm3 (1.8-7.7); Neut % (Auto) 42.8 % (16.0-70.0); Platelet Count 884 th/mm3 (150-450); Red Blood Count 1.83 mil/mm3 (4.00-5.30); Red Cell Distribution Width 13.9 % (11.6-17.2); White Blood Count 11.5 th/mm3 (4.0-11.0)
[2018-02-12 14:30] LABS: Prothrombin Time 10.3 sec (9.8-11.6)
[2018-02-12 14:34] LABS: Hematocrit 18.3 % (35.0-46.0)
[2018-02-12 14:35] LABS: Alanine Aminotransferase 22 U/L (10-53); Albumin 2.8 g/dL (3.4-5.0); Anion Gap 10 meq/L (5-15); Aspartate Aminotransferase 14 U/L (15-37); Blood Urea Nitrogen 9 mg/dL (7-18); Calcium 8.4 mg/dL (8.5-10.1); Carbon Dioxide 21.6 meq/L (21.0-32.0); Chloride 107 meq/L (98-107); Glomerular Filtration Rate 70 mL/min (>89); Glucose,Random 114 mg/dL (74-106); Potassium 3.7 meq/L (3.5-5.1); Sodium 139 meq/L (136-145)
--- NOTE | 2018-02-12 14:35 | P.PNIM ---
Subjective Interval history: 42-year-old female with a history of hypertension,'s anxiety and substance abuse was a transfer from [facility] accepted by Dr. Harrell to be evaluated by hand surgery for a left hand and forearm infection and abscess formation. Patient was treated at [facility] and had an I&D completed to the left hand, forearm and antecubital area after injecting opium, Dilaudid as well as cocaine into the site where the abscess formed. Cultures did grew Streptococcus pyogenes and MRSA, patient was treated with Zosyn and Zyvox. Patient examined on arrival and patient is complaining of 10/10, throbbing, constant pain the the left hand with radiation up her arm, worse with movement and better with pain medication, with associate fevers. Patient has a very nasty wound to the right hand with purulent drainage and some pin point necrotic areas. Denies any chest pain or sob. 8- Complaining significant pain over the left arm and hand. Was over at [facility] since last Sunday states that orthopedic surgery took her to the OR for incision and drainage however area has not improved.. 8 Complaining a lot of pain [address] ON LEFT HAND WANT NICOTINE PATCH STATES SMOKES A PACK A DAY AM LABS DW RN AND PT AND CM 02-12 STILL HAVING SOME PAIN LESS TOBACCO CRAVINGS WITH PATCH CONTINUE ANTIBIOTICS AND SURGERY PER HAND SURGERY DW RN AND PT AND CM Physical Exam Vital signs: Vital Signs 02/11/18 16:00 02/11/18 19:40 02/11/18 23:20 Temperature 97.5 F L 98.3 F 98.7 F Pulse Rate 93 H 89 83 Respiratory Rate 16 16 18 Blood Pressure 119/60 141/66 H 149/67 H Pulse Oximetry 96 97 98 02/12/18 03:34 02/12/18 06:56 02/12/18 10:11 Temperature 98.2 F 98.2 F Pulse Rate 81 74 Respiratory Rate 18 18 18 Blood Pressure 117/56 L 146/65 H Pulse Oximetry 98 100 Intake & Output 02/11/18 02/12/18 02/12/18 18:59 06:59 18:59 Intake Total 1850 / 1850 3112.5 / 3112.5 Balance 185 / 1850 3112.5 / 3112.5 Weight 69.1 kg Intake: IV 1350 / 1350 2362.5 / 2362.5 NS Inj 1,000 ML @ 100 mls/hr IV 1000 / 1000 2000 / 2000 .CONT .Q10H [facility] Rx#:[id number] Zosyn 3.375 GM Premix 50 ML @ 100 / 100 100 / 100 100 mls/hr IV.SIG Q8H [facility] Rx#: [id number] Vancomycin Inj 1,000 MG In NS 250 / 250 Inj 250 ML @ 250 mls/hr IV.SIG Q18H [facility] Rx#:[id number] Vancomycin Inj 1,250 MG In NS 262.5 / 262.5 Inj 250 ML @ 250 mls/hr IV.SIG Q18H [facility] Rx#:[id number] Oral 500 / 500 750 / 750 Other: Mode Setting Left Arm Continuous Continuous # Voids 5 Date of Last Bowel Movement 02/12/18 # Bowel Movements 4 Narrative: GENERAL: This is a well-nourished, well-developed patient, in no apparent distress. CARDIOVASCULAR: Regular rate and rhythm without murmurs, gallops, or rubs. RESPIRATORY: Clear to auscultation. Breath sounds equal bilaterally. No wheezes , rales, or rhonchi. GASTROINTESTINAL: Abdomen soft, non-tender, nondistended. Normal active bowel sounds MUSCULOSKELETAL: Bandage over the left upper arm and with wound VAC over the right dorsum of the hand NEURO: Alert & Oriented x4 to person, place, time, situation. Moves all ext x4 Results - Labs CBC & Chem 7: 02/09/18 00:20 02/11/18 00:12 Laboratory Results - last 24 hr 02/11/18 02/11/18 02/11/18 15:21 15:21 15:21 PT INR Hemoglobin A1c 5.5 Phosphorus 5.0 H Magnesium 1.8 TSH 1.610 Free T4 0.97 Hepatitis A IgM Ab Nonreactive Hep Bs Antigen Nonreactive Hep B Core IgM Ab Nonreactive Hep C IgG Ab Nonreactive 02/12/18 13:52 PT 10.3 INR 1.0 Hemoglobin A1c Phosphorus Magnesium TSH Free T4 Hepatitis A IgM Ab Hep Bs Antigen Hep B Core IgM Ab Hep C IgG Ab Microbiology 02/09/18 00:29 Blood - Peripheral Aerobic Blood Culture - Preliminary No growth in 3 days 02/09/18 00:29 Blood - Peripheral Anaerobic Blood Culture - Preliminary No growth in 3 days 02/09/18 00:20 Blood - Peripheral Aerobic Blood Culture - Preliminary No growth in 3 days 02/09/18 00:20 Blood - Peripheral Anaerobic Blood Culture - Preliminary No growth in 3 days 02/09/18 13:35 Tissue - Wrist Gram Stain - Final 02/09/18 13:35 Tissue - Wrist Wound Culture - Final No growth in 72 hours (aerobically and anaerobically ) Assessment and Plan - Plan 42-year-old white female with a history of IV drug abuse was transferred from [facility] after being evaluated for left hand and arm abscess with surgical incision and drainage by orthopedic surgeon sent to [place] for hand surgery evaluation. 1. Left hand and arm abscess, purulent drainage with necrotic areas/CELLULITIS Requiring hand surgery evaluation, previous cultures grew Streptococcus pyogeneses and MRSA -Consult hand surgery who performed the I&D yesterday -Continue IV antibiotics Zosyn, AND ZYVOX -Blood cultures ordered shows no growth to date -Pain management with p.o. Percocet and IV morphine -N.p.o. for re-debridement today, IVF INFECTED TENOSYNOVITIS PER DR Hernandez HAND SURGEON Cultures intraop from multiple I&Ds: Strep pyogens, Strep Angionosus, Prevotella , MRSA. 2. Genital herpes -Patient so far has been treated with Valtrex for 3 days, continue p.o. Valtrex for 2 more days. 3. Tobacco and substance abuse -Encouraged to quit -Cessation counseling NICODERM PATCH DVT prophylaxis: scds, hold chemical until after surgery Discharge Planning: Transfer back to [facility] when cleared by hand surgery. Code Status: FULL CODE Discussed Condition With: RN AND PT AND CM Discharge Planning: ONCE CLEARED BY HAND SURGERY
[2018-02-12 14:38] LABS: Alkaline Phosphatase 77 U/L (45-117)
[2018-02-12 15:05] LABS: Platelet Morphology Normal (Normal)
[2018-02-12 16:29] LABS: Baso # (Auto) 0.1 th/mm3 (0.0-0.2); Baso % (Auto) 1.1 % (0.0-2.0); Eos # (Auto) 0.2 th/mm3 (0.0-0.4); Eos % (Auto) 2.6 % (0.0-4.0); Hemoglobin 9.2 gm/dL (11.6-15.3); Lymph # (Auto) 3.7 th/mm3 (1.0-4.8); Lymph % (Auto) 46.5 % (9.0-44.0); Mean Corpuscular Hemoglobin 35.1 pg (27.0-34.0); Mean Corpuscular Volume 94.9 fL (80.0-100.0); Mean Platelet Volume 6.2 fL (7.0-11.0); Mono # (Auto) 0.8 th/mm3 (0.0-0.9); Mono % (Auto) 10.2 % (0.0-8.0); Neut # (Auto) 3.1 th/mm3 (1.8-7.7); Neut % (Auto) 39.6 % (16.0-70.0); Platelet Count 649 th/mm3 (150-450); Red Blood Count 2.63 mil/mm3 (4.00-5.30); Red Cell Distribution Width 13.4 % (11.6-17.2); White Blood Count 7.9 th/mm3 (4.0-11.0)
--- NOTE | 2018-02-12 17:41 | P.PN ---
Subjective Interval history: complains of mild pain complaint with wound vac complaint with limb elevation and range of motion exercises Physical Exam Vital signs: Vital Signs 02/11/18 19:40 02/11/18 23:20 02/12/18 03:34 Temperature 98.3 F 98.7 F 98.2 F Pulse Rate 89 83 81 Respiratory Rate 16 18 18 Blood Pressure 141/66 H 149/67 H 117/56 L Pulse Oximetry 97 98 98 02/12/18 06:56 02/12/18 10:11 02/12/18 12:00 Temperature 98.2 F 98.1 F Pulse Rate 74 78 Respiratory Rate 18 18 18 Blood Pressure 146/65 H 120/57 L Pulse Oximetry 100 97 02/12/18 16:00 Temperature 98 F Pulse Rate 81 Respiratory Rate 18 Blood Pressure 143/77 H Pulse Oximetry 100 Intake & Output 02/11/18 02/12/18 02/12/18 18:59 06:59 18:59 Intake Total 1850 / 1850 3112.5 / 3112.5 1312.5 / 1312.5 Output Total 3000 / 3000 Balance 1850 / 1850 3112.5 / 3112.5 -1687.5 / -1687.5 Weight 69.1 kg Intake: IV 1350 / 1350 2362.5 / 2362.5 1312.5 / 1312.5 NS Inj 1,000 ML @ 100 mls/hr IV 1000 / 1000 2000 / 2000 1000 / 1000 .CONT .Q10H [facility] Rx#:[id number] Zosyn 3.375 GM Premix 50 ML @ 100 / 100 100 / 100 50 / 50 100 mls/hr IV.SIG Q8H [facility] Rx#: [id number] Vancomycin Inj 1,000 MG In NS 250 / 250 Inj 250 ML @ 250 mls/hr IV.SIG Q18H [facility] Rx#:[id number] Vancomycin Inj 1,250 MG In NS 262.5 / 262.5 262.5 / 262.5 Inj 250 ML @ 250 mls/hr IV.SIG Q18H [facility] Rx#:[id number] Oral 500 / 500 750 / 750 Output: Urine 3000 / 3000 Other: Mode Setting Left Arm Continuous Continuous # Voids 5 Date of Last Bowel Movement 02/12/18 02/12/18 # Bowel Movements 4 2 Narrative: examination of left upper extremity": vac in place range of motion of fingers has improved intact distal sensation intact distal circulation intra operative cultures are negative Results - Labs CBC & Chem 7: 02/12/18 15:15 02/12/18 13:52 Laboratory Results - last 24 hr 02/11/18 02/12/18 02/12/18 15:21 13:52 13:52 WBC 11.5 H RBC 1.83 L Hgb 6.0 L* Hct 18.3 L* MCV 99.7 MCH 32.8 MCHC 33.0 RDW 13.9 Plt Count 884 H MPV 6.1 L Prelim Diff (Auto) Slide review pending Neut % (Auto) 42.8 Lymph % (Auto) 43.2 [place] % (Auto) 10.5 H Eos % (Auto) 2.3 Baso % (Auto) 1.2 Neut # (Auto) 4.9 Lymph # (Auto) 5.0 H [place] # (Auto) 1.2 H Eos # (Auto) 0.3 Baso # (Auto) 0.1 WBC Differential . Diff Scan Auto diff confirmed Differential Comment . Platelet Estimate High H Platelet Morphology Normal PT 10.3 INR 1.0 Sodium Potassium Chloride Carbon Dioxide Anion Gap BUN Creatinine Estimated GFR Random Glucose Calcium Total Bilirubin AST ALT Alkaline Phosphatase Total Protein Albumin Hepatitis A IgM Ab Nonreactive Hep Bs Antigen Nonreactive Hep B Core IgM Ab Nonreactive Hep C IgG Ab Nonreactive 02/12/18 02/12/18 13:52 15:15 WBC 7.9 RBC 2.63 L Hgb 9.2 L D Hct 25.0 L MCV 94.9 D MCH 35.1 H MCHC 37.0 H RDW 13.4 Plt Count 649 H MPV 6.2 L Prelim Diff (Auto) Slide review pending Neut % (Auto) 39.6 Lymph % (Auto) 46.5 H [place] % (Auto) 10.2 H Eos % (Auto) 2.6 Baso % (Auto) 1.1 Neut # (Auto) 3.1 Lymph # (Auto) 3.7 [place] # (Auto) 0.8 Eos # (Auto) 0.2 Baso # (Auto) 0.1 WBC Differential Diff Scan Differential Comment . Platelet Estimate Platelet Morphology PT INR Sodium 139 Potassium 3.7 Chloride 107 Carbon Dioxide 21.6 Anion Gap 10 BUN 9 Creatinine 0.89 Estimated GFR 70 L Random Glucose 114 H Calcium 8.4 L Total Bilirubin 0.1 L AST 14 L ALT 22 Alkaline Phosphatase 77 Total Protein 7.0 Albumin 2.8 L Hepatitis A IgM Ab Hep Bs Antigen Hep B Core IgM Ab Hep C IgG Ab Microbiology 02/09/18 00:29 Blood - Peripheral Aerobic Blood Culture - Preliminary No growth in 3 days 02/09/18 00:29 Blood - Peripheral Anaerobic Blood Culture - Preliminary No growth in 3 days 02/09/18 00:20 Blood - Peripheral Aerobic Blood Culture - Preliminary No growth in 3 days 02/09/18 00:20 Blood - Peripheral Anaerobic Blood Culture - Preliminary No growth in 3 days 02/09/18 13:35 Tissue - Wrist Gram Stain - Final 02/09/18 13:35 Tissue - Wrist Wound Culture - Final No growth in 72 hours (aerobically and anaerobically ) Assessment and Plan - Assessment (1) Abscess of tendon sheath, left forearm Code(s): M65.032 - Abscess of tendon sheath, left forearm Status: Acute - Plan will proceed with wash, debridement and possible wound vac change on 02/13/18 keep the patient npo from 7 am on 02/13/18 continue antibiotics based on ID recommendations will plan further surgeries based on tomorrow's findings. continue with wound vac
[2018-02-12 17:58] LABS: Platelet Morphology Normal (Normal)
[2018-02-13] MEDS: oxyCODONE/Acetaminophen 10/325 Tablet PO PRN ×5 (00:29→23:24)
[2018-02-13] MEDS: Piperacil/Tazo 3.375 GM Premix 50 ML IV.SIG SCH ×3 (00:31→14:04)
[2018-02-13] MEDS: Morphine Inj 4 MG/ML Vial IV.PUSH PRN ×4 (02:05→20:57)
[2018-02-13] MEDS: Sod Chloride 0.9% Inj 1,000 ML IV.CONT SCH ×2 (03:50→12:53)
[2018-02-13] MEDS: Vancomycin Inj 1,250 MG in Sodium Chlor 0.9% Inj 250 ML IV.SIG SCH (06:28)
[2018-02-13 09:35] LABS: Baso # (Auto) 0.1 th/mm3 (0.0-0.2); Baso % (Auto) 1.5 % (0.0-2.0); Eos # (Auto) 0.2 th/mm3 (0.0-0.4); Eos % (Auto) 3.5 % (0.0-4.0); Hematocrit 26.6 % (35.0-46.0); Hemoglobin 9.3 gm/dL (11.6-15.3); Lymph # (Auto) 3.5 th/mm3 (1.0-4.8); Lymph % (Auto) 49.6 % (9.0-44.0); Mean Corpuscular Hemoglobin 33.5 pg (27.0-34.0); Mean Corpuscular Volume 95.9 fL (80.0-100.0); Mono % (Auto) 13.9 % (0.0-8.0); Neut # (Auto) 2.2 th/mm3 (1.8-7.7); Neut % (Auto) 31.5 % (16.0-70.0); Platelet Count 635 th/mm3 (150-450); Red Blood Count 2.78 mil/mm3 (4.00-5.30); Red Cell Distribution Width 13.4 % (11.6-17.2); White Blood Count 7.1 th/mm3 (4.0-11.0)
--- NOTE | 2018-02-13 09:49 | P.PNIM ---
Subjective Interval history: 42-year-old female with a history of hypertension,'s anxiety and substance abuse was a transfer from [facility] accepted by Dr. Harrell to be evaluated by hand surgery for a left hand and forearm infection and abscess formation. Patient was treated at [facility] and had an I&D completed to the left hand, forearm and antecubital area after injecting opium, Dilaudid as well as cocaine into the site where the abscess formed. Cultures did grew Streptococcus pyogenes and MRSA, patient was treated with Zosyn and Zyvox. Patient examined on arrival and patient is complaining of 10/10, throbbing, constant pain the the left hand with radiation up her arm, worse with movement and better with pain medication, with associate fevers. Patient has a very nasty wound to the right hand with purulent drainage and some pin point necrotic areas. Denies any chest pain or sob. 8 Complaining significant pain over the left arm and hand. Was over at [facility] since last Sunday states that orthopedic surgery took her to the OR for incision and drainage however area has not improved.. 02-10 Complaining a lot of pain 02-[address] ON LEFT HAND WANT NICOTINE PATCH STATES SMOKES A PACK A DAY AM LABS DW RN AND PT AND CM 02-12 STILL HAVING SOME PAIN LESS TOBACCO CRAVINGS WITH PATCH CONTINUE ANTIBIOTICS AND SURGERY PER HAND SURGERY DW RN AND PT AND CM 02-13 FOLLOW UP LEFT HAND COMPLAINS OF SOME PAIN IN LEFT HAND ALSO COMPLAINS OF CYST BY RIGHT LABIA- VISUALIZED BY MYSELF AND FEMALE RN DIRECTOR DIGITAL HAS AREA OF DRAINAGE AND CRUSTING ON RIGHT SIDE OF LABIA-SLOWLY IMPROVING PER PATIENT IS ON ANTIBIOTICS THAT WILL COVER THIS TOO DW RN AND PT AND CM FOR HAND SURGERY AGAIN TODAY 02-13 Physical Exam Vital signs: Vital Signs 02/12/18 10:11 02/12/18 12:00 02/12/18 16:00 Temperature 98.2 F 98.1 F 98 F Pulse Rate 74 78 81 Respiratory Rate 18 18 18 Blood Pressure 146/65 H 120/57 L 143/77 H Pulse Oximetry 100 97 100 02/12/18 20:00 02/13/18 00:00 02/13/18 04:00 Temperature 98.2 F 98.5 F 97.6 F Pulse Rate 83 77 66 Respiratory Rate 18 18 18 Blood Pressure 156/74 H 143/65 H 112/62 Pulse Oximetry 98 99 95 02/13/18 07:00 Temperature Pulse Rate Respiratory Rate 12 Blood Pressure Pulse Oximetry Intake & Output 02/12/18 02/13/18 02/13/18 18:59 06:59 18:59 Intake Total 1312.5 / 1312.5 1580 / 1580 262.5 / 262.5 Output Total 3000 / 3000 Balance -1687.5 / -1687.5 1580 / 1580 262.5 / 262.5 Weight 69.1 kg Intake: IV 1312.5 / 1312.5 1100 / 1100 262.5 / 262.5 NS Inj 1,000 ML @ 100 mls/hr IV 1000 / 1000 1000 / 1000 .CONT .Q10H [facility] Rx#:[id number] Zosyn 3.375 GM Premix 50 ML @ 50 / 50 100 / 100 100 mls/hr IV.SIG Q8H [facility] Rx#: [id number] Vancomycin Inj 1,250 MG In NS 262.5 / 262.5 262.5 / 262.5 Inj 250 ML @ 250 mls/hr IV.SIG Q18H [facility] Rx#:[id number] Oral 480 / 480 Output: Urine 3000 / 3000 Other: Mode Setting Left Arm Continuous Continuous # Voids 4 1 Date of Last Bowel Movement 02/12/18 02/13/18 # Bowel Movements 2 1 1 Narrative: GENERAL: This is a well-nourished, well-developed patient, in no apparent distress. CARDIOVASCULAR: Regular rate and rhythm without murmurs, gallops, or rubs. RESPIRATORY: Clear to auscultation. Breath sounds equal bilaterally. No wheezes , rales, or rhonchi. GASTROINTESTINAL: Abdomen soft, non-tender, nondistended. Normal active bowel sounds MUSCULOSKELETAL: Bandage over the left upper arm and with wound VAC over the right dorsum of the hand NEURO: Alert & Oriented x4 to person, place, time, situation. Moves all ext x4 RIGHT GROIN HAS CYST ON RIGHT SIDE OF LABIA WITH SOME DRAINAGE -PATIENT STATES IS DECREASING IN SIZE WILL MONITOR Results - Labs CBC & Chem 7: 02/13/18 09:12 02/12/18 13:52 Laboratory Results - last 24 hr 02/12/18 02/12/18 02/12/18 13:52 13:52 13:52 WBC 11.5 H RBC 1.83 L Hgb 6.0 L* Hct 18.3 L* MCV 99.7 MCH 32.8 MCHC 33.0 RDW 13.9 Plt Count 884 H MPV 6.1 L Prelim Diff (Auto) Slide review pending Neut % (Auto) 42.8 Lymph % (Auto) 43.2 [place] % (Auto) 10.5 H Eos % (Auto) 2.3 Baso % (Auto) 1.2 Neut # (Auto) 4.9 Lymph # (Auto) 5.0 H [place] # (Auto) 1.2 H Eos # (Auto) 0.3 Baso # (Auto) 0.1 WBC Differential . Diff Scan Auto diff confirmed Differential Comment . Platelet Estimate High H Platelet Morphology Normal PT 10.3 INR 1.0 Sodium 139 Potassium 3.7 Chloride 107 Carbon Dioxide 21.6 Anion Gap 10 BUN 9 Creatinine 0.89 Estimated GFR 70 L Random Glucose 114 H Calcium 8.4 L Total Bilirubin 0.1 L AST 14 L ALT 22 Alkaline Phosphatase 77 Total Protein 7.0 Albumin 2.8 L 02/12/18 02/13/18 15:15 09:12 WBC 7.9 7.1 RBC 2.63 L 2.78 L Hgb 9.2 L D 9.3 L Hct 25.0 L 26.6 L MCV 94.9 D 95.9 MCH 35.1 H 33.5 MCHC 37.0 H 35.0 RDW 13.4 13.4 Plt Count 649 H 635 H MPV 6.2 L 6.0 L Prelim Diff (Auto) Slide review pending Neut % (Auto) 39.6 31.5 Lymph % (Auto) 46.5 H 49.6 H [place] % (Auto) 10.2 H 13.9 H Eos % (Auto) 2.6 3.5 Baso % (Auto) 1.1 1.5 Neut # (Auto) 3.1 2.2 Lymph # (Auto) 3.7 3.5 [place] # (Auto) 0.8 1.0 H Eos # (Auto) 0.2 0.2 Baso # (Auto) 0.1 0.1 WBC Differential . . Diff Scan Auto diff confirmed Differential Comment . Auto diff final Platelet Estimate High H Platelet Morphology Normal PT INR Sodium Potassium Chloride Carbon Dioxide Anion Gap BUN Creatinine Estimated GFR Random Glucose Calcium Total Bilirubin AST ALT Alkaline Phosphatase Total Protein Albumin Microbiology 08/18/18 00:29 Blood - Peripheral Aerobic Blood Culture - Preliminary No growth in 3 days 02/09/18 00:29 Blood - Peripheral Anaerobic Blood Culture - Preliminary No growth in 3 days 02/09/18 00:20 Blood - Peripheral Aerobic Blood Culture - Preliminary No growth in 3 days 02/09/18 00:20 Blood - Peripheral Anaerobic Blood Culture - Preliminary No growth in 3 days 02/09/18 13:35 Tissue - Wrist Gram Stain - Final 02/09/18 13:35 Tissue - Wrist Wound Culture - Final No growth in 72 hours (aerobically and anaerobically ) - Procedures (1) Abscess of tendon sheath, left forearm (2) Abscess of left hand including fingers Postoperative Diagnosis: extensor tenosynovitis left forearm, wrist and hand 4th and 6th extensor compartments Date of procedure: 02/10/18 Procedure: exploration, incision and drainage, excisional debridement skin, subcutaneous tissue, extensor tenosynovium 4th and 6th compartments left hand /wrist and forearm Anesthesia: GETA, MAC, other (general with LMA) Surgeon: Jose Guadalupe Izquierdo MD Estimated blood loss (mL): 25 Tourniquet time (min): 55 Pathology: other (tissue for c/s) Documented By: Jose Guadalupe Izquierdo MD 02/09/18 [id number] (1) Abscess of tendon sheath, left forearm (2) Abscess of left hand including fingers Date of procedure: 02/10/18 Procedure: wash, excisional debridement skin, subcutaneous tissue, extensor tenosynovium, wound vac change left wrist and hand Anesthesia: GETA Surgeon: Jose Guadalupe Izquierdo MD Estimated blood loss (mL): 5 Tourniquet time (min): 34 Pathology: none sent Operation and Findings: minimal necrotic/devitalized tissue extensor tenosynovitis minimal Documented By: Jose Guadalupe Izquierdo MD 02/10/181956 Assessment and Plan - Plan 42-year-old white female with a history of IV drug abuse was transferred from [facility] after being evaluated for left hand and arm abscess with surgical incision and drainage by orthopedic surgeon sent to [place] for hand surgery evaluation. 1. Left hand and arm abscess, purulent drainage with necrotic areas/CELLULITIS Requiring hand surgery evaluation, previous cultures grew Streptococcus pyogeneses and MRSA -Consult hand surgery who performed the I&D yesterday -Continue IV antibiotics Zosyn, AND ZYVOX -Blood cultures ordered shows no growth to date -Pain management with p.o. Percocet and IV morphine -N.p.o. for re-debridement today, IVF INFECTED TENOSYNOVITIS PER DR Hernandez HAND SURGEON Cultures intraop from multiple I&Ds: Strep pyogens, Strep Angionosus, Prevotella , MRSA. GOING FOR LEFT HAND SURGERY NANC[facility] TODAY 02-13 2. Genital herpes -Patient so far has been treated with Valtrex for 3 days, continue p.o. Valtrex for 2 more days. ALSO HAS RIGHT LABIAL INFECTION CYST- ZOSYN AND ZYVOX SHOULD COVER 3. Tobacco and substance abuse -Encouraged to quit -Cessation counseling NICODERM PATCH DVT prophylaxis: scds, hold chemical until after surgery Discharge Planning: Transfer back to [facility] when cleared by hand surgery. Code Status: FULL CODE Discussed Condition With: RN AND PT AND CM Discharge Planning: ONCE CLEARED BY HAND SURGERY
[2018-02-13 09:56] LABS: Albumin 2.7 g/dL (3.4-5.0); Anion Gap 9 meq/L (5-15); Aspartate Aminotransferase 15 U/L (15-37); Blood Urea Nitrogen 8 mg/dL (7-18); Calcium 8.7 mg/dL (8.5-10.1); Carbon Dioxide 25.3 meq/L (21.0-32.0); Chloride 108 meq/L (98-107); Glomerular Filtration Rate 82 mL/min (>89); Glucose,Random 101 mg/dL (74-106); Magnesium 2.1 mg/dL (1.5-2.5); Potassium 3.7 meq/L (3.5-5.1); Sodium 142 meq/L (136-145)
[2018-02-13 10:07] LABS: Alanine Aminotransferase 19 U/L (10-53); Alkaline Phosphatase 67 U/L (45-117); Phosphorus 3.9 mg/dL (2.5-4.9); Total Protein 6.7 g/dL (6.4-8.2)
[2018-02-13] MEDS ORDERED: Phenylephrine/NS 1000 MCG/10ML Syringe IV.PUSH ONE (10:09)
[2018-02-13] MEDS ORDERED: Lidocaine PF 1% Inj 5 ML Syringe INFILTRATN ONE (10:09)
--- NOTE | 2018-02-13 15:46 | P.PNID ---
Subjective Remarks: Ms. Fitzgerald is a 42-year-old female with past medical history significant for hypertension, anxiety and substance abuse(denies any IV drug abuse but reports smoking and/or snorting different agents like cocaine and marijuana). With this background patient reports a piece of furniture fell on her hand and due to excruciating pain she let her friend inject intravenous Dilaudid into her left hand at the site of the injury. Subsequently this area of the hand became increasingly swollen red with areas of blackening and so she presented to the local hospital in [place] which is [facility]. Patient was accepted by Dr. Lu for transfer for hand surgery. Patient was evaluated by of hand surgery and underwent debridement in the operating room yesterday. In fact patient reports to me there is a plan for further debridement in the OR today. Intraoperative cultures are currently pending and patient has been started on empiric antibiotics. Prior to the patient arriving at [facility] she was treated with Zosyn as well as Zyvox at the other hospital. Infectious disease consulted for evaluation and management of left hand abscess , cellulitis possibly Tenosynovitis. Patient denies any prior drug abuse Denies any prior infection such as endocarditis or discitis. Denies any fevers chills or night sweats. Medical History: Abscess of left hand including fingers Anxiety HTN (hypertension) History of hysterectomy Shingles Substance abuse Surgical History: Surgical History History of cholecystectomy History of incision and drainage Overnight events reviewed Complains of occ pain at site of surgery. Headed to OR shortly for another debridement. No fevers No rash No diarrhea Able to wiggle fingers. Reviewed medical records from [place]: Patient admitted to IV drugs at other hospital. Cultures intraop from multiple I&Ds: Strep pyogens, Strep Angionosus, Prevotella , MRSA. Antibiotics: Zosyn IV Zyvox Lines: Lines ok Past Medical History: reviewed Allergies/Adverse Reactions: Allergies chocolate flavor [Chocolate] Adverse Reaction (Mild, Verified 02/08/18 23:38) Rash latex Adverse Reaction (Mild, Verified 02/08/18 23:38) Rash Objective Vital Signs 02/12/18 16:00 02/12/18 20:00 02/13/18 00:00 Temperature 98 F 98.2 F 98.5 F Pulse Rate 81 83 77 Respiratory Rate 18 18 18 Blood Pressure 143/77 H 156/74 H 143/65 H Pulse Oximetry 100 98 99 02/13/18 04:00 02/13/18 07:00 02/13/18 08:00 Temperature 97.6 F 98.1 F Pulse Rate 66 75 Respiratory Rate 18 12 20 Blood Pressure 112/62 114/54 L Pulse Oximetry 95 98 02/13/18 12:00 02/13/18 14:26 Temperature 98.1 F Pulse Rate 81 Respiratory Rate 20 12 Blood Pressure 132/64 Pulse Oximetry 98 Intake & Output 02/12/18 02/13/18 02/13/18 18:59 06:59 18:59 Intake Total 1312.5 / 1312.5 1580 / 1580 1312.5 / 1312.5 Output Total 3000 / 3000 Balance -1687.5 / -1687.5 1580 / 1580 1312.5 / 1312.5 Weight 69.1 kg Intake: IV 1312.5 / 1312.5 1100 / 1100 1312.5 / 1312.5 NS Inj 1,000 ML @ 100 mls/hr IV 1000 / 1000 1000 / 1000 1000 / 1000 .CONT .Q10H [facility] Rx#:[id number] Zosyn 3.375 GM Premix 50 ML @ 50 / 50 100 / 100 50 / 50 100 mls/hr IV.SIG Q8H [facility] Rx#: [id number] Vancomycin Inj 1,250 MG In NS 262.5 / 262.5 262.5 / 262.5 Inj 250 ML @ 250 mls/hr IV.SIG Q18H [facility] Rx#:[id number] Oral 480 / 480 Output: Urine 3000 / 3000 Other: Mode Setting Left Arm Continuous Continuous Continuous # Voids 4 1 Date of Last Bowel Movement 02/12/18 02/13/18 # Bowel Movements 2 1 1 02/09/18 00:29 Blood - Peripheral Aerobic Blood Culture - Preliminary No growth in 4 days 02/09/18 00:29 Blood - Peripheral Anaerobic Blood Culture - Preliminary No growth in 4 days 02/09/18 00:20 Blood - Peripheral Aerobic Blood Culture - Preliminary No growth in 4 days 02/09/18 00:20 Blood - Peripheral Anaerobic Blood Culture - Preliminary No growth in 4 days 02/09/18 13:35 Tissue - Wrist Gram Stain - Final 02/09/18 13:35 Tissue - Wrist Wound Culture - Final No growth in 72 hours (aerobically and anaerobically ) 02/09/18 13:35 Tissue - Wrist Fungal Smear - Final No fungal elements seen 02/09/18 13:35 Tissue - Wrist Fungal Culture - Pending 02/09/18 13:35 Tissue - Wrist Acid Fast Bacilli Smear - Final No acid fast bacilli seen 02/09/18 13:35 Tissue - Wrist Mycobacterial Culture - Pending Lab - Hematology Results 02/12/18 02/12/18 02/13/18 13:52 15:15 09:12 WBC 11.5 H 7.9 7.1 RBC 1.83 L 2.63 L 2.78 L Hgb 6.0 L* 9.2 L D 9.3 L Hct 18.3 L* 25.0 L 26.6 L MCV 99.7 94.9 D 95.9 MCH 32.8 35.1 H 33.5 MCHC 33.0 37.0 H 35.0 RDW 13.9 13.4 13.4 Plt Count 884 H 649 H 635 H MPV 6.1 L 6.2 L 6.0 L Prelim Diff (Auto) Slide review pending Slide review pending Neut % (Auto) 42.8 39.6 31.5 Lymph % (Auto) 43.2 46.5 H 49.6 H Floyd % (Auto) 10.5 H 10.2 H 13.9 H Eos % (Auto) 2.3 2.6 3.5 Baso % (Auto) 1.2 1.1 1.5 Neut # (Auto) 4.9 3.1 2.2 Lymph # (Auto) 5.0 H 3.7 3.5 Floyd # (Auto) 1.2 H 0.8 1.0 H Eos # (Auto) 0.3 0.2 0.2 Baso # (Auto) 0.1 0.1 0.1 WBC Differential . . . Diff Scan Auto diff confirmed Auto diff confirmed Differential Comment . . Auto diff final Platelet Estimate High H High H Platelet Morphology Normal Normal Lab - Chemistry Results 02/11/18 02/11/18 02/12/18 15:21 15:21 13:52 Sodium 139 Potassium 3.7 Chloride 107 Carbon Dioxide 21.6 Anion Gap 10 BUN 9 Creatinine 0.89 Estimated GFR 70 L Random Glucose 114 H Hemoglobin A1c 5.5 Calcium 8.4 L Phosphorus 5.0 H Magnesium 1.8 Total Bilirubin 0.1 L AST 14 L ALT 22 Alkaline Phosphatase 77 Total Protein 7.0 Albumin 2.8 L TSH 1.610 Free T4 0.97 02/13/18 09:12 Sodium 142 Potassium 3.7 Chloride 108 H Carbon Dioxide 25.3 Anion Gap 9 BUN 8 Creatinine 0.77 Estimated GFR 82 L Random Glucose 101 Hemoglobin A1c Calcium 8.7 Phosphorus 3.9 D Magnesium 2.1 Total Bilirubin 0.2 AST 15 ALT 19 Alkaline Phosphatase 67 Total Protein 6.7 Albumin 2.7 L TSH Free T4 Physical Exam: GENERAL: Well-nourished well-developed, not in acute distress SKIN: Cool and dry, no generalized rash HEAD: Atraumatic. Normocephalic. No temporal or scalp tenderness. EYES: Pupils equal round and reactive. Scleral icterus. No injection or drainage. No petechia ENT: Nothing abnormal detected NECK: Trachea midline. Supple, nontender, no meningeal signs. CARDIOVASCULAR: HS audible. RESPIRATORY: Clear to auscultation bilaterally. GASTROINTESTINAL: Abdomen soft nontender. MUSCULOSKELETAL: Left hand in postop dressing able to wiggle fingers. NEUROLOGICAL: Alert oriented 3. Nonfocal. Psych cooperative IV line sites ok. Assessment and Plan - Plan Left hand abscess/cellulitis Infected tenosynovitis per triny Schwab Hand surgeon Substance abuse Cultures intraop from multiple I&Ds: Strep pyogens, Strep Angionosus, Prevotella , MRSA. Recommendations: Continue Zosyn IV Continue IV Zyvox Follow intraoperative cultures Follow clinically
[2018-02-13] MEDS ORDERED: Ketamine Inj 50 MG/5 ML Syringe IV.PUSH ONE (16:02)
[2018-02-13] MEDS ORDERED: Neomycin/Polymyxin G.U. Irrigant 1 ML Ampul ONE (16:21)
[2018-02-13] MEDS ORDERED: Lidocaine 2% Inj 50 ML Vial ONE (16:26)
[2018-02-13] MEDS ORDERED: Bupivacaine PF 0.5% Inj 30 ML Vial ONE (16:28)
[2018-02-13] MEDS ORDERED: HYDROmorphone PF Inj 2 MG/ML Vial ONE (16:51)
[2018-02-13] MEDS ORDERED: Bacitracin Opth Oint 3.5 GM Tube ONE (17:26)
--- NOTE | 2018-02-13 17:40 | P.OP ---
- Preoperative Diagnosis (1) Abscess of tendon sheath, left forearm (2) Abscess of left hand including fingers - Postoperative Diagnosis (1) Abscess of tendon sheath, left forearm (2) Abscess of left hand including fingers Date of procedure: 02/13/18 Procedure: wash and excisional debridement left hand and wrist Anesthesia: CATHY Surgeon: Jose Guadalupe Izquierdo MD Estimated blood loss (mL): 5 Pathology: other (swab for c/s)
[2018-02-13] MEDS ORDERED: fentaNYL Citrate Inj 100 MCG/2 ML Ampul ONE (17:50)
[2018-02-13] MEDS ORDERED: *morphine SULFATE 10 MG/ML PERIprocedure ONLY ONE (18:04)
--- NOTE | 2018-02-13 19:40 | MP ---
cc: Jose Guadalupe Izquierdo MD DATE OF OPERATION: 02/13/2018 DATE OF SURGERY: 02/13/2018 PREOPERATIVE DIAGNOSIS: Abscess and infection, left hand and wrist. POSTOPERATIVE DIAGNOSIS: Abscess and infection, left hand and wrist. PROCEDURE PERFORMED: Excisional debridement, left hand and wrist. SURGEON: Jose Guadalupe Izquierdo MD ANESTHESIA: General. ESTIMATED BLOOD LOSS: Minimal. TOURNIQUET TIME: No tourniquet was used. SPECIMENS: Swab was sent for culture and sensitivity. DISPOSITION: To PACU stable. INDICATIONS FOR PROCEDURE: This is a 42-year-old female who presented with infection and necrotic wound over the dorsal aspect of the hand and wrist. The patient underwent multiple debridements and she was put on wound VAC. She was brought in today for repeat exploration and wash, debridement, possible wound VAC change. The patient had exposed tendons over the dorsal aspect of the hand and wrist during the previous wound VAC application. The patient was explained the risks and benefits of the procedure. PROCEDURE IN DETAIL: The patient was brought to the operating room under general anesthesia. The left upper extremity was sterilely prepped and draped. The previously placed wound VAC was removed. Intraoperative findings included 2 wounds, one over the whole of the dorsal aspect of the hand and one over the dorsal aspect of the wrist joint. There is evidence of exposed extensor retinaculum and extensor tendons over the wrist joint region. There is also evidence of exposed tendon of the third and fourth metacarpals over the hand region. Minimal necrotic tissue noted in the wound. Healthy granulation noted throughout the wound. Swab was obtained for culture and sensitivity. Excisional debridement of the necrotic tissue was carried out. Thorough wash was given using normal saline mixed with irrigant. Adaptic and bacitracin dressing applied. Bulky hand dressing was applied which was held in place by a Sof-Rol and a bias hand wrap. The patient had good distal circulation at the end of the procedure. She was recovered and sent to recovery in stable condition. Plan will be to bring the patient in in a day or two for integra application. Jose Guadalupe Izquierdo MD SE/radha/zack , 05:43 PM , 05:51 PM SUSANNE
[2018-02-13] MEDS ORDERED: Pharmacy Ordered Lab Info OTHER ONE (23:45)
[2018-02-14] MEDS: Sod Chloride 0.9% Inj 1,000 ML IV.CONT SCH ×3 (00:49→17:58)
[2018-02-14] MEDS: Morphine Inj 4 MG/ML Vial IV.PUSH PRN ×6 (00:50→19:47)
[2018-02-14] MEDS: Vancomycin Inj 1,250 MG in Sodium Chlor 0.9% Inj 250 ML IV.SIG SCH ×2 (01:15→11:44)
[2018-02-14] MEDS: oxyCODONE/Acetaminophen 10/325 Tablet PO PRN ×2 (03:34→22:39)
[2018-02-14] MEDS: Piperacil/Tazo 3.375 GM Premix 50 ML IV.SIG SCH ×4 (06:47→22:39)
--- NOTE | 2018-02-14 09:30 | P.PNIM ---
Subjective Interval history: 42-year-old female with a history of hypertension,'s anxiety and substance abuse was a transfer from [facility] accepted by Dr. Harrell to be evaluated by hand surgery for a left hand and forearm infection and abscess formation. Patient was treated at [facility] and had an I&D completed to the left hand, forearm and antecubital area after injecting opium, Dilaudid as well as cocaine into the site where the abscess formed. Cultures did grew Streptococcus pyogenes and MRSA, patient was treated with Zosyn and Zyvox. Patient examined on arrival and patient is complaining of 10/10, throbbing, constant pain the the left hand with radiation up her arm, worse with movement and better with pain medication, with associate fevers. Patient has a very nasty wound to the right hand with purulent drainage and some pin point necrotic areas. Denies any chest pain or sob. 02-09 Complaining significant pain over the left arm and hand. Was over at [facility] since last Sunday states that orthopedic surgery took her to the OR for incision and drainage however area has not improved.. 02-10 Complaining a lot of pain 02-[address] ON LEFT HAND WANT NICOTINE PATCH STATES SMOKES A PACK A DAY AM LABS DW RN AND PT AND CM 02-12 STILL HAVING SOME PAIN LESS TOBACCO CRAVINGS WITH PATCH CONTINUE ANTIBIOTICS AND SURGERY PER HAND SURGERY DW RN AND PT AND CM 02-13 FOLLOW UP LEFT HAND COMPLAINS OF SOME PAIN IN LEFT HAND ALSO COMPLAINS OF CYST BY RIGHT LABIA- VISUALIZED BY MYSELF AND FEMALE RN FENDER FINISHER HAS AREA OF DRAINAGE AND CRUSTING ON RIGHT SIDE OF LABIA-SLOWLY IMPROVING PER PATIENT IS ON ANTIBIOTICS THAT WILL COVER THIS TOO DW RN AND PT AND CM FOR HAND SURGERY AGAIN TODAY 02-13 HAD SURGERY ON 02-13 WOUND VAC IS OFF AT THIS TIME WILL NEED SKIN GRAFT PRIOR TO DC DW RN AND PT CONTINUE ANTIBIOTICS Physical Exam Vital signs: Vital Signs 02/13/18 12:00 02/13/18 14:26 02/13/18 17:43 Temperature 98.1 F 97.8 F Pulse Rate 81 94 H Respiratory Rate 20 12 18 Blood Pressure 132/64 127/64 Pulse Oximetry 98 96 02/13/18 18:05 02/13/18 19:58 02/14/18 00:20 Temperature 97.8 F 98.3 F 98 F Pulse Rate 87 88 67 Respiratory Rate 18 18 17 Blood Pressure 127/68 141/67 H 117/67 Pulse Oximetry 96 100 97 02/14/18 04:00 Temperature 98.5 F Pulse Rate 73 Respiratory Rate 18 Blood Pressure 125/68 Pulse Oximetry 97 Intake & Output 02/13/18 02/14/18 02/14/18 18:59 06:59 18:59 Intake Total 1612.5 / 1612.5 432.5 / 432.5 1050 / 1050 Output Total 4 / 4 Balance 1608.5 / 1608.5 432.5 / 432.5 1050 / 1050 Weight 69 kg Intake: IV 1312.5 / 1312.5 312.5 / 312.5 1050 / 1050 NS Inj 1,000 ML @ 100 mls/hr IV 1000 / 1000 1000 / 1000 .CONT .Q10H [facility] Rx#:[id number] Zosyn 3.375 GM Premix 50 ML @ 50 / 50 50 / 50 50 / 50 100 mls/hr IV.SIG Q8H [facility] Rx#: [id number] Vancomycin Inj 1,250 MG In NS 262.5 / 262.5 262.5 / 262.5 Inj 250 ML @ 250 mls/hr IV.SIG Q18H [facility] Rx#:[id number] Oral 120 / 120 Anesthesia Amount 300 / 300 Output: Estimated Blood Loss 4 / 4 Other: Mode Setting Left Arm Continuous # Voids 1 4 Date of Last Bowel Movement 02/13/18 # Bowel Movements 1 2 Narrative: GENERAL: This is a well-nourished, well-developed patient, in no apparent distress. CARDIOVASCULAR: Regular rate and rhythm without murmurs, gallops, or rubs. RESPIRATORY: Clear to auscultation. Breath sounds equal bilaterally. No wheezes , rales, or rhonchi. GASTROINTESTINAL: Abdomen soft, non-tender, nondistended. Normal active bowel sounds MUSCULOSKELETAL: Bandage over the left upper arm and LEFT dorsum of the hand NEURO: Alert & Oriented x4 to person, place, time, situation. Moves all ext x4 RIGHT GROIN HAS CYST ON RIGHT SIDE OF LABIA WITH SOME DRAINAGE -PATIENT STATES IS DECREASING IN SIZE WILL MONITOR Results - Labs CBC & Chem 7: 02/13/18 09:12 02/13/18 09:12 Laboratory Results - last 24 hr 0802/13/18 02/14/18 09:12 09:12 01:00 WBC 7.1 RBC 2.78 L Hgb 9.3 L Hct 26.6 L MCV 95.9 MCH 33.5 MCHC 35.0 RDW 13.4 Plt Count 635 H MPV 6.0 L Neut % (Auto) 31.5 Lymph % (Auto) 49.6 H [place] % (Auto) 13.9 H Eos % (Auto) 3.5 Baso % (Auto) 1.5 Neut # (Auto) 2.2 Lymph # (Auto) 3.5 [place] # (Auto) 1.0 H Eos # (Auto) 0.2 Baso # (Auto) 0.1 WBC Differential . Differential Comment Auto diff final Sodium 142 Potassium 3.7 Chloride 108 H Carbon Dioxide 25.3 Anion Gap 9 BUN 8 Creatinine 0.77 Estimated GFR 82 L Random Glucose 101 Calcium 8.7 Phosphorus 3.9 D Magnesium 2.1 Total Bilirubin 0.2 AST 15 ALT 19 Alkaline Phosphatase 67 Total Protein 6.7 Albumin 2.7 L Vancomycin Trough 8.5 Microbiology 02/09/18 00:29 Blood - Peripheral Aerobic Blood Culture - Preliminary No growth in 4 days 02/09/18 00:29 Blood - Peripheral Anaerobic Blood Culture - Preliminary No growth in 4 days 02/09/18 00:20 Blood - Peripheral Aerobic Blood Culture - Preliminary No growth in 4 days 02/09/18 00:20 Blood - Peripheral Anaerobic Blood Culture - Preliminary No growth in 4 days - Procedures (1) Abscess of tendon sheath, left forearm (2) Abscess of left hand including fingers Postoperative Diagnosis: extensor tenosynovitis left forearm, wrist and hand 4th and 6th extensor compartments Date of procedure: 02/10/18 Procedure: exploration, incision and drainage, excisional debridement skin, subcutaneous tissue, extensor tenosynovium 4th and 6th compartments left hand /wrist and forearm Anesthesia: GETA, MAC, other (general with LMA) Surgeon: Jose Guadalupe Izquierdo MD Estimated blood loss (mL): 25 Tourniquet time (min): 55 Pathology: other (tissue for c/s) Documented By: Jose Guadalupe Izquierdo MD 02/09/18 1453 (1) Abscess of tendon sheath, left forearm (2) Abscess of left hand including fingers Date of procedure: 02/10/18 Procedure: wash, excisional debridement skin, subcutaneous tissue, extensor tenosynovium, wound vac change left wrist and hand Anesthesia: GETA Surgeon: Jose Guadalupe Izquierdo MD Estimated blood loss (mL): 5 Tourniquet time (min): 34 Pathology: none sent Operation and Findings: minimal necrotic/devitalized tissue extensor tenosynovitis minimal Documented By: Jose Guadalupe Izquierdo MD 02/10/181956 02/13/2018 DATE OF SURGERY: 02/13/2018 PREOPERATIVE DIAGNOSIS: Abscess and infection, left hand and wrist. POSTOPERATIVE DIAGNOSIS: Abscess and infection, left hand and wrist. PROCEDURE PERFORMED: Excisional debridement, left hand and wrist. SURGEON: Jose Guadalupe Izquierdo MD Assessment and Plan - Plan 42-year-old white female with a history of IV drug abuse was transferred from [facility] after being evaluated for left hand and arm abscess with surgical incision and drainage by orthopedic surgeon sent to Post for hand surgery evaluation. 1. Left hand and arm abscess, purulent drainage with necrotic areas/CELLULITIS Requiring hand surgery evaluation, previous cultures grew Streptococcus pyogeneses and MRSA -Consult hand surgery who performed the I&D yesterday -Continue IV antibiotics Zosyn, AND ZYVOX -Blood cultures ordered shows no growth to date -Pain management with p.o. Percocet and IV morphine -N.p.o. for re-debridement today, IVF INFECTED TENOSYNOVITIS PER DR Hernandez HAND SURGEON Cultures intraop from multiple I&Ds: Strep pyogens, Strep Angionosus, Prevotella , MRSA. GOING FOR LEFT HAND SURGERY AGMARISSA TODAY 02-13 2. Genital herpes -Patient so far has been treated with Valtrex ALSO HAS RIGHT LABIAL INFECTION CYST- ZOSYN AND ZYVOX SHOULD COVER 3. Tobacco and substance abuse -Encouraged to quit -Cessation counseling NICODERM PATCH DVT prophylaxis: scds, hold chemical until after surgery Discharge Planning: Transfer back to [facility] when cleared by hand surgery. Code Status: FULL CODE Discussed Condition With: RN AND PT AND CM Discharge Planning: ONCE CLEARED BY HAND SURGERY
[2018-02-15] MEDS: Vancomycin Inj 1,250 MG in Sodium Chlor 0.9% Inj 250 ML IV.SIG SCH ×3 (00:06→12:27)
[2018-02-15] MEDS: Morphine Inj 4 MG/ML Vial IV.PUSH PRN ×5 (00:10→15:02)
[2018-02-15] MEDS: oxyCODONE/Acetaminophen 10/325 Tablet PO PRN ×3 (01:52→21:47)
[2018-02-15] MEDS ORDERED: Chlorhexidine Gluconate 2% 1 Pack (2 Cloths) TOPICAL SCH (05:45)
[2018-02-15] MEDS ORDERED: Sodium Chlor 0.9% Inj 500 ML IV.SIG SCH (06:00)
[2018-02-15] MEDS: Sod Chloride 0.9% Inj 1,000 ML IV.CONT SCH ×2 (06:06→15:03)
[2018-02-15] MEDS: Piperacil/Tazo 3.375 GM Premix 50 ML IV.SIG SCH ×3 (06:12→22:29)
--- NOTE | 2018-02-15 10:48 | P.PNIM ---
Subjective Interval history: 42-year-old female with a history of hypertension,'s anxiety and substance abuse was a transfer from [facility] accepted by Dr. Harrell to be evaluated by hand surgery for a left hand and forearm infection and abscess formation. Patient was treated at [facility] and had an I&D completed to the left hand, forearm and antecubital area after injecting opium, Dilaudid as well as cocaine into the site where the abscess formed. Cultures did grew Streptococcus pyogenes and MRSA, patient was treated with Zosyn and Zyvox. Patient examined on arrival and patient is complaining of 10/10, throbbing, constant pain the the left hand with radiation up her arm, worse with movement and better with pain medication, with associate fevers. Patient has a very nasty wound to the right hand with purulent drainage and some pin point necrotic areas. Denies any chest pain or sob. 02-09 Complaining significant pain over the left arm and hand. Was over at [facility] since last Sunday states that orthopedic surgery took her to the OR for incision and drainage however area has not improved.. 02-10 Complaining a lot of pain 02-[address] ON LEFT HAND WANT NICOTINE PATCH STATES SMOKES A PACK A DAY AM LABS ANAMIKA RN AND PT AND CM 02-12 STILL HAVING SOME PAIN LESS TOBACCO CRAVINGS WITH PATCH CONTINUE ANTIBIOTICS AND SURGERY PER HAND SURGERY ANAMIKA RN AND PT AND CM 02-13 FOLLOW UP LEFT HAND COMPLAINS OF SOME PAIN IN LEFT HAND ALSO COMPLAINS OF CYST BY RIGHT LABIA- VISUALIZED BY MYSELF AND FEMALE RN HYPERBARIC TECH HAS AREA OF DRAINAGE AND CRUSTING ON RIGHT SIDE OF LABIA-SLOWLY IMPROVING PER PATIENT IS ON ANTIBIOTICS THAT WILL COVER THIS TOO ANAMIKA RN AND PT AND CM FOR HAND SURGERY AGAIN TODAY 02-13 HAD SURGERY ON 02-13 WOUND VAC IS OFF AT THIS TIME WILL NEED SKIN GRAFT PRIOR TO DC ANAMIKA RN AND PT CONTINUE ANTIBIOTICS 02-15 TO GO FOR SURGERY TODAY WITH DR David AGUERO LABS PAIN CONTROL ANTIBIOTICS ANAMIKA RN AND PT AND CM Physical Exam Vital signs: Vital Signs 02/14/18 12:00 02/14/18 16:00 02/14/18 19:48 Temperature 98.2 F 98.7 F 99 F Pulse Rate 104 H 97 H 95 H Respiratory Rate 16 20 20 Blood Pressure 120/60 115/74 137/63 Pulse Oximetry 93 L 97 96 02/15/18 00:00 02/15/18 04:00 02/15/18 08:00 Temperature 98.8 F 98.1 F 97.7 F Pulse Rate 92 H 81 78 Respiratory Rate 16 18 16 Blood Pressure 149/74 H 144/75 H 105/53 L Pulse Oximetry 98 98 96 Intake & Output 02/14/18 02/15/18 02/15/18 18:59 06:59 18:59 Intake Total 2982.5 / 2982.5 1312.5 / 1312.5 50 / 50 Output Total 5 / 5 Balance 2977.5 / 2977.5 1312.5 / 1312.5 50 / 50 Weight 67.4 kg Intake: IV 2362.5 / 2362.5 1312.5 / 1312.5 50 / 50 NS Inj 1,000 ML @ 100 mls/hr IV 2000 / 2000 1000 / 1000 .CONT .Q10H [facility] Rx#:[id number] Zosyn 3.375 GM Premix 50 ML @ 100 / 100 50 / 50 50 / 50 100 mls/hr IV.SIG Q8H [facility] Rx#: [id number] Vancomycin Inj 1,250 MG In NS 262.5 / 262.5 262.5 / 262.5 Inj 250 ML @ 250 mls/hr IV.SIG Q12H [facility] Rx#:[id number] Oral 620 / 620 Output: Urine 3 / 3 Stool 2 / 2 Other: # Voids 1 Date of Last Bowel Movement 02/14/18 02/15/18 02/15/18 Narrative: GENERAL: This is a well-nourished, well-developed patient, in no apparent distress. CARDIOVASCULAR: Regular rate and rhythm without murmurs, gallops, or rubs. RESPIRATORY: Clear to auscultation. Breath sounds equal bilaterally. No wheezes , rales, or rhonchi. GASTROINTESTINAL: Abdomen soft, non-tender, nondistended. Normal active bowel sounds MUSCULOSKELETAL: Bandage over the left upper arm and LEFT dorsum of the hand NEURO: Alert & Oriented x4 to person, place, time, situation. Moves all ext x4 Results - Labs CBC & Chem 7: 02/13/18 09:12 02/13/18 09:12 Microbiology 02/13/18 17:25 Wound - Hand Acid Fast Bacilli Smear - Final No acid fast bacilli seen 02/13/18 17:25 Wound - Hand Gram Stain - Final 02/13/18 17:25 Wound - Hand Wound Culture - Preliminary No growth in 24 hours 02/13/18 17:25 Wound - Hand Fungal Smear - Final No fungal elements seen 02/09/18 00:29 Blood - Peripheral Aerobic Blood Culture - Final No growth in 5 days 02/09/18 00:29 Blood - Peripheral Anaerobic Blood Culture - Final No growth in 5 days 02/09/18 00:20 Blood - Peripheral Aerobic Blood Culture - Final No growth in 5 days 02/09/18 00:20 Blood - Peripheral Anaerobic Blood Culture - Final No growth in 5 days - Procedures (1) Abscess of tendon sheath, left forearm (2) Abscess of left hand including fingers Postoperative Diagnosis: extensor tenosynovitis left forearm, wrist and hand 4th and 6th extensor compartments Date of procedure: 02/10/18 Procedure: exploration, incision and drainage, excisional debridement skin, subcutaneous tissue, extensor tenosynovium 4th and 6th compartments left hand /wrist and forearm Anesthesia: GETA, MAC, other (general with LMA) Surgeon: Jose Guadalupe Izquierdo MD Estimated blood loss (mL): 25 Tourniquet time (min): 55 Pathology: other (tissue for c/s) Documented By: Jose Guadalupe Izquierdo MD 02/09/18 1453 (1) Abscess of tendon sheath, left forearm (2) Abscess of left hand including fingers Date of procedure: 02/10/18 Procedure: wash, excisional debridement skin, subcutaneous tissue, extensor tenosynovium, wound vac change left wrist and hand Anesthesia: GETA Surgeon: Jose Guadalupe Izquierdo MD Estimated blood loss (mL): 5 Tourniquet time (min): 34 Pathology: none sent Operation and Findings: minimal necrotic/devitalized tissue extensor tenosynovitis minimal Documented By: Jose Guadalupe Izquierdo MD 02/10/18 1957 02/13/2018 DATE OF SURGERY: 02/13/2018 PREOPERATIVE DIAGNOSIS: Abscess and infection, left hand and wrist. POSTOPERATIVE DIAGNOSIS: Abscess and infection, left hand and wrist. PROCEDURE PERFORMED: Excisional debridement, left hand and wrist. SURGEON: Jose Guadalupe Izquierdo MD Assessment and Plan - Plan 42-year-old white female with a history of IV drug abuse was transferred from [facility] after being evaluated for left hand and arm abscess with surgical incision and drainage by orthopedic surgeon sent to [place] for hand surgery evaluation. 1. Left hand and arm abscess, purulent drainage with necrotic areas/CELLULITIS Requiring hand surgery evaluation, previous cultures grew Streptococcus pyogeneses and MRSA -Consult hand surgery who performed the I&D yesterday -Continue IV antibiotics Zosyn, AND ZYVOX -Blood cultures ordered shows no growth to date -Pain management with p.o. Percocet and IV morphine -N.p.o. for re-debridement today, IVF INFECTED TENOSYNOVITIS PER DR Hernandez HAND SURGEON Cultures intraop from multiple I&Ds: Strep pyogens, Strep Angionosus, Prevotella , MRSA. GOING FOR LEFT HAND SURGERY NANCY TODAY - GOING FOR MORE SURGERY ON LEFT HAND TODAY 2. Genital herpes -Patient so far has been treated with Valtrex ALSO HAS RIGHT LABIAL INFECTION CYST- ZOSYN AND ZYVOX SHOULD COVER 3. Tobacco and substance abuse -Encouraged to quit -Cessation counseling NICODERM PATCH DVT prophylaxis: scds, hold chemical until after surgery Discharge Planning: Transfer back to [facility] when cleared by hand surgery. Code Status: FULL CODE Discussed Condition With: RN AND PT AND CM Discharge Planning: ONCE CLEARED BY HAND SURGERY
[2018-02-15] MEDS ORDERED: Pharmacy Ordered Lab Info OTHER ONE (11:45)
[2018-02-15] MEDS ORDERED: Lidocaine PF 1% Inj 5 ML Syringe INFILTRATN ONE (12:00)
[2018-02-15] MEDS ORDERED: Neomycin/Polymyxin G.U. Irrigant 1 ML Ampul ONE (17:58)
[2018-02-15] MEDS ORDERED: HYDROmorphone PF Inj 2 MG/ML Vial ONE (18:48)
[2018-02-15] MEDS ORDERED: fentaNYL Citrate Inj 100 MCG/2 ML Ampul ONE ×2 (19:04→19:05)
[2018-02-15] MEDS: Bupivacaine PF 0.5% Inj 30 ML Vial ONE ×2 (19:22→21:46)
--- NOTE | 2018-02-15 20:08 | P.OP ---
- Preoperative Diagnosis (1) Open wound of left wrist (2) Open wound of left hand - Postoperative Diagnosis (1) Open wound of left hand (2) Open wound of left wrist Date of procedure: 02/15/18 Procedure: wash, excisional debridement and bilayer meshed integra application left hand and wrist Anesthesia: GETA Surgeon: Jose Guadalupe Izquierdo MD Estimated blood loss (mL): 5 Operation and Findings: open wound over the dorsal aspect of the hand measuring 3.5 X 2.5 inches open wound over the dorsal aspect of the wrist measuring 1X1.5 inches healthy granulation tissue exposed extensor tendons
[2018-02-15] MEDS ORDERED: *Meperidine Inj 25 MG/ML Vial PERIprocedural Use ONLY ONE (20:15)
[2018-02-15] MEDS: Lidocaine 2% Inj 50 ML Vial ONE ×2 (20:32→21:46)
[2018-02-16] MEDS: Morphine Inj 4 MG/ML Vial IV.PUSH PRN ×5 (00:31→18:37)
[2018-02-16] MEDS: Sod Chloride 0.9% Inj 1,000 ML IV.CONT SCH ×3 (00:31→22:24)
[2018-02-16] MEDS: oxyCODONE/Acetaminophen 10/325 Tablet PO PRN ×5 (02:33→22:25)
[2018-02-16] MEDS: Vancomycin Inj 1,000 MG in Sodium Chlor 0.9% Inj 250 ML IV.SIG SCH ×2 (02:33→13:09)
[2018-02-16] MEDS: Piperacil/Tazo 3.375 GM Premix 50 ML IV.SIG SCH ×3 (06:25→22:29)
--- NOTE | 2018-02-16 11:29 | P.PNIM ---
Subjective Interval history: 42-year-old female with a history of hypertension,'s anxiety and substance abuse was a transfer from [facility] accepted by Dr. Harrell to be evaluated by hand surgery for a left hand and forearm infection and abscess formation. Patient was treated at [facility] and had an I&D completed to the left hand, forearm and antecubital area after injecting opium, Dilaudid as well as cocaine into the site where the abscess formed. Cultures did grew Streptococcus pyogenes and MRSA, patient was treated with Zosyn and Zyvox. Patient examined on arrival and patient is complaining of 10/10, throbbing, constant pain the the left hand with radiation up her arm, worse with movement and better with pain medication, with associate fevers. Patient has a very nasty wound to the right hand with purulent drainage and some pin point necrotic areas. Denies any chest pain or sob. 02-09 Complaining significant pain over the left arm and hand. Was over at [facility] since last Sunday states that orthopedic surgery took her to the OR for incision and drainage however area has not improved.. 02-10 Complaining a lot of pain 02-[address] ON LEFT HAND WANT NICOTINE PATCH STATES SMOKES A PACK A DAY AM LABS ANAMIKA RN AND PT AND CM 02-12 STILL HAVING SOME PAIN LESS TOBACCO CRAVINGS WITH PATCH CONTINUE ANTIBIOTICS AND SURGERY PER HAND SURGERY ANAMIKA RN AND PT AND CM 02-13 FOLLOW UP LEFT HAND COMPLAINS OF SOME PAIN IN LEFT HAND ALSO COMPLAINS OF CYST BY RIGHT LABIA- VISUALIZED BY MYSELF AND FEMALE RN CIRCULAR HEAD SAW OPERATOR HAS AREA OF DRAINAGE AND CRUSTING ON RIGHT SIDE OF LABIA-SLOWLY IMPROVING PER PATIENT IS ON ANTIBIOTICS THAT WILL COVER THIS TOO ANAMIKA RN AND PT AND CM FOR HAND SURGERY AGAIN TODAY 02-13 HAD SURGERY ON 02-13 WOUND VAC IS OFF AT THIS TIME WILL NEED SKIN GRAFT PRIOR TO DC ANAMIKA RN AND PT CONTINUE ANTIBIOTICS 02-15 TO GO FOR SURGERY TODAY WITH DR Hernandez AM LABS PAIN CONTROL ANTIBIOTICS ANAMIKA RN AND PT AND CM 02-16 HAD MORE SURGERY YESTERDAY WITH DR Hernandez Physical Exam Vital signs: Vital Signs 02/15/18 12:00 02/15/18 16:00 02/15/18 20:09 Temperature 98.0 F 97.9 F 97.5 F L Pulse Rate 84 86 90 Respiratory Rate 16 16 24 Blood Pressure 118/59 L 136/61 122/59 L Pulse Oximetry 96 97 92 L 02/15/18 20:15 02/15/18 21:41 02/16/18 00:00 Temperature 97.8 F 98.4 F Pulse Rate 93 H 84 80 Respiratory Rate 18 Blood Pressure 121/59 L 133/77 114/62 Pulse Oximetry 99 98 97 02/16/18 01:54 02/16/18 04:00 02/16/18 08:00 Temperature 98.4 F 98.1 F Pulse Rate 78 78 Respiratory Rate 7 L 18 Blood Pressure 116/59 L 141/63 H Pulse Oximetry 95 98 Intake & Output 02/15/18 02/16/18 02/16/18 18:59 06:59 18:59 Intake Total 362.5 / 362.5 1999 50 / 50 Output Total Balance 362.5 / 362.5 1994 50 / 50 Weight 68.5 kg Intake: IV 362.5 / 362.5 1300 / 1300 50 / 50 NS Inj 1,000 ML @ 100 mls/hr IV 1000 / 1000 .CONT .Q10H [facility] Rx#:[id number] Zosyn 3.375 GM Premix 50 ML @ 100 / 100 50 / 50 50 / 50 100 mls/hr IV.SIG Q8H [facility] Rx#: [id number] Vancomycin Inj 1,000 MG In NS 250 / 250 Inj 250 ML @ 250 mls/hr IV.SIG Q12H [facility] Rx#:[id number] Vancomycin Inj 1,250 MG In NS 262.5 / 262.5 Inj 250 ML @ 250 mls/hr IV.SIG Q12H [facility] Rx#:[id number] Oral 0 / 0 Anesthesia Amount 700 / 700 Output: Estimated Blood Loss 5 / 5 Other: # Voids 6 2 Date of Last Bowel Movement 02/15/18 # Bowel Movements 0 Narrative: GENERAL: This is a well-nourished, well-developed patient, in no apparent distress. CARDIOVASCULAR: Regular rate and rhythm without murmurs, gallops, or rubs. RESPIRATORY: Clear to auscultation. Breath sounds equal bilaterally. No wheezes , rales, or rhonchi. GASTROINTESTINAL: Abdomen soft, non-tender, nondistended. Normal active bowel sounds MUSCULOSKELETAL: Bandage over the left upper arm and LEFT dorsum of the hand NEURO: Alert & Oriented x4 to person, place, time, situation. Moves all ext x4 Results - Labs CBC & Chem 7: 02/13/18 09:12 02/16/18 05:15 Laboratory Results - last 24 hr 02/15/18 02/16/18 10:44 05:15 Creatinine 0.85 Estimated GFR 73 L Vancomycin Trough 19.5 H Microbiology 02/13/18 17:25 Wound - Hand Gram Stain - Final 02/13/18 17:25 Wound - Hand Wound Culture - Final No growth in 72 hours (aerobically and anaerobically ) - Procedures (1) Abscess of tendon sheath, left forearm (2) Abscess of left hand including fingers Postoperative Diagnosis: extensor tenosynovitis left forearm, wrist and hand 4th and 6th extensor compartments Date of procedure: 02/10/18 Procedure: exploration, incision and drainage, excisional debridement skin, subcutaneous tissue, extensor tenosynovium 4th and 6th compartments left hand /wrist and forearm Anesthesia: GETA, MAC, other (general with LMA) Surgeon: Jose Guadalupe Izquierdo MD Estimated blood loss (mL): 25 Tourniquet time (min): 55 Pathology: other (tissue for c/s) Documented By: Jose Guadalupe Izquierdo MD 02/09/18 1453 (1) Abscess of tendon sheath, left forearm (2) Abscess of left hand including fingers Date of procedure: 02/10/18 Procedure: wash, excisional debridement skin, subcutaneous tissue, extensor tenosynovium, wound vac change left wrist and hand Anesthesia: GETA Surgeon: Jose Guadalupe Izquierdo MD Estimated blood loss (mL): 5 Tourniquet time (min): 34 Pathology: none sent Operation and Findings: minimal necrotic/devitalized tissue extensor tenosynovitis minimal Documented By: Jose Guadalupe Izquierdo MD 02/10/181956 02/13/2018 DATE OF SURGERY: 02/13/2018 PREOPERATIVE DIAGNOSIS: Abscess and infection, left hand and wrist. POSTOPERATIVE DIAGNOSIS: Abscess and infection, left hand and wrist. PROCEDURE PERFORMED: Excisional debridement, left hand and wrist. SURGEON: Jose Guadalupe Izquierdo MD (1) Open wound of left hand (2) Open wound of left wrist Date of procedure: 02/15/18 Procedure: wash, excisional debridement and bilayer meshed integra application left hand and wrist Anesthesia: GETA Surgeon: Jose Guadalupe Izquierdo MD Estimated blood loss (mL): 5 Operation and Findings: open wound over the dorsal aspect of the hand measuring 3.5 X 2.5 inches open wound over the dorsal aspect of the wrist measuring 1X1.5 inches healthy granulation tissue exposed extensor tendons Documented By: Jose Guadalupe Izquierdo MD 02/15/182003 Assessment and Plan - Plan 42-year-old white female with a history of IV drug abuse was transferred from [facility] after being evaluated for left hand and arm abscess with surgical incision and drainage by orthopedic surgeon sent to [place] for hand surgery evaluation. 1. Left hand and arm abscess, purulent drainage with necrotic areas/CELLULITIS Requiring hand surgery evaluation, previous cultures grew Streptococcus pyogeneses and MRSA -Consult hand surgery who performed the I&D yesterday -Continue IV antibiotics Zosyn, AND ZYVOX -Blood cultures ordered shows no growth to date -Pain management with p.o. Percocet and IV morphine -N.p.o. for re-debridement today, IVF INFECTED TENOSYNOVITIS PER DR Hernandez HAND SURGEON Cultures intraop from multiple I&Ds: Strep pyogens, Strep Angionosus, Prevotella , MRSA. GOING FOR LEFT HAND SURGERY AGIAN TODAY 02-13 GOING FOR MORE SURGERY ON LEFT HAND TODAY 02-15 2. Genital herpes -Patient so far has been treated with Valtrex ALSO HAS RIGHT LABIAL INFECTION CYST- ZOSYN AND ZYVOX SHOULD COVER 3. Tobacco and substance abuse -Encouraged to quit -Cessation counseling NICODERM PATCH DVT prophylaxis: scds, hold chemical until after surgery Discharge Planning: Transfer back to [facility] when cleared by hand surgery. Code Status: FULL CODE Discussed Condition With: RN AND PT AND CM Discharge Planning: ONCE CLEARED BY HAND SURGERY
[2018-02-17] MEDS: Morphine Inj 4 MG/ML Vial IV.PUSH PRN ×3 (00:12→14:17)
[2018-02-17] MEDS ORDERED: Pharmacy Ordered Lab Info OTHER ONE ×2 (01:45→13:45)
[2018-02-17] MEDS: oxyCODONE/Acetaminophen 10/325 Tablet PO PRN ×5 (04:00→23:14)
[2018-02-17] MEDS: Piperacil/Tazo 3.375 GM Premix 50 ML IV.SIG SCH ×4 (04:01→20:17)
[2018-02-17] MEDS: Vancomycin Inj 1,000 MG in Sodium Chlor 0.9% Inj 250 ML IV.SIG SCH ×2 (04:02→13:00)
[2018-02-17] MEDS: Sod Chloride 0.9% Inj 1,000 ML IV.CONT SCH ×2 (05:58→14:18)
--- NOTE | 2018-02-17 09:08 | P.PNIM ---
Subjective Interval history: Pt seen and examined. AFVSS. No acute events overnight. Pt states morphine is not working and she is having "at least five different kinds of pain" involving her L hand/wrist. Per RN, concern for pain seeking. She states her appetite is good. Denies abdominal pain, N/V, CP, SOB. Physical Exam Vital signs: Vital Signs 02/16/18 11:00 02/16/18 12:00 02/16/18 16:00 Temperature 98.9 F 98.3 F Pulse Rate 88 77 Respiratory Rate 16 18 18 Blood Pressure 128/61 131/61 Pulse Oximetry 98 99 02/16/18 20:50 02/17/18 00:30 02/17/18 04:00 Temperature 98 F 97.6 F Pulse Rate 85 80 Respiratory Rate 16 17 8 L Blood Pressure 128/60 120/66 Pulse Oximetry 98 96 02/17/18 04:40 Temperature 98.9 F Pulse Rate 76 Respiratory Rate 16 Blood Pressure 130/66 Pulse Oximetry 98 Intake & Output 02/16/18 02/17/18 02/17/18 18:59 06:59 18:59 Intake Total 1100 / 1100 3900 / 3900 Balance 1100 / 1100 3900 / 3900 Weight 69 kg Intake: IV 1100 / 1100 350 / 350 NS Inj 1,000 ML @ 100 mls/hr IV 1000 / 1000 .CONT .Q10H [facility] Rx#:[id number] Zosyn 3.375 GM Premix 50 ML @ 100 / 100 100 / 100 100 mls/hr IV.SIG Q6H [facility] Rx#: [id number] Vancomycin Inj 1,000 MG In NS 250 / 250 Inj 250 ML @ 250 mls/hr IV.SIG Q12H [facility] Rx#:[id number] Oral 3550 / 3550 Other: # Voids 6 Date of Last Bowel Movement 02/15/18 # Bowel Movements 3 Narrative: GENERAL: WN, WD female resting in bed. Appears restless. SKIN: Warm and dry. HEART: RRR no m/r/g. LUNGS: CTAB without wheezes or crackles. ABDOMEN: +BS, soft, NT, ND. EXTREMITIES: Left wrist/hand wrapped. Able to wiggle all fingers. Sensation intact. NEURO: Awake and alert. Results - Labs CBC & Chem 7: 02/13/18 09:12 02/17/18 05:25 Laboratory Results - last 24 hr 02/17/18 02/17/18 05:25 05:25 Creatinine 0.84 Estimated GFR 74 L Vancomycin Trough 26.3 H Microbiology 02/09/18 13:35 Tissue - Wrist Fungal Smear - Final No fungal elements seen 02/09/18 13:35 Tissue - Wrist Fungal Culture - Preliminary No growth in 1 week 02/09/18 13:35 Tissue - Wrist Acid Fast Bacilli Smear - Final No acid fast bacilli seen 02/09/18 13:35 Tissue - Wrist Mycobacterial Culture - Preliminary No growth in 1 week 02/13/18 17:25 Wound - Hand Gram Stain - Final 02/13/18 17:25 Wound - Hand Wound Culture - Final No growth in 72 hours (aerobically and anaerobically ) - Procedures 02/10: exploration, incision and drainage, excisional debridement skin, subcutaneous tissue, extensor tenosynovium 4th and 6th compartments left hand / wrist and forearm, wound vac 02/13: excisional debridement, left hand and wrist 02/15: wash, excisional debridement and bilayer meshed integra application left hand and wrist Assessment and Plan - Plan 42 year old female with history of HTN, anxiety, and substance abuse admitted 02/08 for L hand cellulitis and abscess. Reportedly a piece of furniture fell on her hand and due to excruciating pain she allowed her friend to inject IV Dilaudid at the site of her injury. 1. L hand cellulitis, abscess, infected tenosynovitis - Hand surgery following - S/P debridement 02/13 and 02/[address] Izquierdo - Cultures growing Strep pyogens, Strep anginosus, Prevotella, and MRSA - ID following - On Zosyn and Vanco - Pain control - Change morphine to low dose Dilaudid for breakthrough 2. Substance abuse - Counseled on cessation 3. Genital herpes - Completed Valtrex 4. Tobacco abuse - Counseled on cessation - Nicotine patch DVT prophylaxis: SCDs, encourage ambulation Code Status: Full Discussed Condition With: Patient and accounting administrator Planning: Once cleared by hand surgery and ID
[2018-02-17] MEDS: HYDROmorphone PF Inj 2 MG/ML Vial IV.PUSH PRN (20:18)
[2018-02-18] MEDS: HYDROmorphone PF Inj 2 MG/ML Vial IV.PUSH PRN ×6 (00:19→23:15)
[2018-02-18] MEDS: Vancomycin Inj 1,250 MG in Sodium Chlor 0.9% Inj 250 ML IV.SIG SCH ×2 (03:00→16:06)
[2018-02-18] MEDS: Piperacil/Tazo 3.375 GM Premix 50 ML IV.SIG SCH ×4 (03:01→21:18)
[2018-02-18] MEDS: oxyCODONE/Acetaminophen 10/325 Tablet PO PRN ×5 (03:01→21:18)
[2018-02-18 06:31] LABS: Baso # (Auto) 0.1 th/mm3 (0.0-0.2); Baso % (Auto) 1.1 % (0.0-2.0); Eos # (Auto) 0.4 th/mm3 (0.0-0.4); Eos % (Auto) 4.8 % (0.0-4.0); Hematocrit 30.3 % (35.0-46.0); Hemoglobin 10.2 gm/dL (11.6-15.3); Lymph # (Auto) 4.1 th/mm3 (1.0-4.8); Lymph % (Auto) 51.5 % (9.0-44.0); Mean Corpuscular HGB Conc 33.6 % (32.0-36.0); Mean Corpuscular Hemoglobin 32.2 pg (27.0-34.0); Mean Corpuscular Volume 95.7 fL (80.0-100.0); Mean Platelet Volume 7.6 fL (7.0-11.0); Mono # (Auto) 0.8 th/mm3 (0.0-0.9); Mono % (Auto) 9.6 % (0.0-8.0); Neut # (Auto) 2.6 th/mm3 (1.8-7.7); Platelet Count 441 th/mm3 (150-450); Red Blood Count 3.16 mil/mm3 (4.00-5.30)
[2018-02-18 06:53] LABS: Calcium 8.5 mg/dL (8.5-10.1); Carbon Dioxide 24.6 meq/L (21.0-32.0); Potassium 3.6 meq/L (3.5-5.1)
--- NOTE | 2018-02-18 09:12 | P.PNIM ---
Subjective Interval history: Pt seen and examined. AFVSS. Pt endorsing pain in her left hand/wrist with some radiation to elbow. Otherwise no complaints. No CP, SOB, abdominal pain, N/V. Hand surgery coming today to change dressing. Physical Exam Vital signs: Vital Signs 02/17/18 10:06 02/17/18 12:00 02/17/18 16:00 Temperature 97.9 F 97.9 F Pulse Rate 84 79 Respiratory Rate 16 18 18 Blood Pressure 126/80 132/78 Pulse Oximetry 98 97 02/17/18 21:20 02/18/18 00:00 02/18/18 05:30 Temperature 98.6 F 97.9 F 98 F Pulse Rate 103 H 100 H 98 H Respiratory Rate 17 18 19 Blood Pressure 140/77 135/75 120/68 Pulse Oximetry 98 97 98 02/18/18 08:00 02/18/18 08:53 Temperature 97.9 F Pulse Rate 70 Respiratory Rate 14 14 Blood Pressure 109/55 L Pulse Oximetry 97 Intake & Output 02/17/18 02/18/18 02/18/18 18:59 06:59 18:59 Intake Total 2069 / 0 4575 / 4575 Output Total 2 / 2 Balance 2067 / 2067 4575 / 4575 Weight 69 kg Intake: IV 1350 / 1350 2625 / 2625 NS Inj 1,000 ML @ 100 mls/hr IV 1000 / 1000 .CONT .Q10H [facility] Rx#:[id number] Zosyn 3.375 GM Premix 50 ML @ 100 / 100 100 / 100 100 mls/hr IV.SIG Q6H [facility] Rx#: [id number] Vancomycin Inj 1,000 MG In NS 250 / 250 Inj 250 ML @ 250 mls/hr IV.SIG Q12H [facility] Rx#:[id number] Vancomycin Inj 1,250 MG In NS 275 / 275 Inj 250 ML @ 250 mls/hr IV.SIG Q12H [facility] Rx#:[id number] Oral 720 / 720 1950 / 1950 Output: Stool 2 / 2 Other: # Voids 3 4 Date of Last Bowel Movement 02/15/18 02/17/18 # Bowel Movements 0 Narrative: GENERAL: WN, WD female resting in bed. Appears restless. SKIN: Warm and dry. HEART: RRR no m/r/g. LUNGS: CTAB without wheezes or crackles. ABDOMEN: +BS, soft, NT, ND. EXTREMITIES: Left wrist/hand wrapped. Able to wiggle all fingers. Sensation intact. NEURO: Awake and alert. Results - Labs CBC & Chem 7: 02/18/18 03:54 02/18/18 03:54 Laboratory Results - last 24 hr 02/17/18 02/18/18 02/18/18 12:00 03:54 03:54 WBC 8.0 RBC 3.16 L Hgb 10.2 L Hct 30.3 L MCV 95.7 MCH 32.2 MCHC 33.6 RDW 14.0 Plt Count 441 D MPV 7.6 Neut % (Auto) 33.0 Lymph % (Auto) 51.5 H Powell % (Auto) 9.6 H Eos % (Auto) 4.8 H Baso % (Auto) 1.1 Neut # (Auto) 2.6 Lymph # (Auto) 4.1 Powell # (Auto) 0.8 Eos # (Auto) 0.4 Baso # (Auto) 0.1 WBC Differential . Differential Comment Auto diff final Sodium 142 Potassium 3.6 Chloride 107 Carbon Dioxide 24.6 Anion Gap 10 BUN 9 Creatinine 0.79 Estimated GFR 80 L Random Glucose 69 L Calcium 8.5 Vancomycin Trough 14.7 H - Procedures 02/10: exploration, incision and drainage, excisional debridement skin, subcutaneous tissue, extensor tenosynovium 4th and 6th compartments left hand / wrist and forearm, wound vac 02/13: excisional debridement, left hand and wrist 02/15: wash, excisional debridement and bilayer meshed integra application left hand and wrist Assessment and Plan - Plan 42 year old female with history of HTN, anxiety, and substance abuse admitted 02/08 for L hand cellulitis and abscess. Reportedly a piece of furniture fell on her hand and due to excruciating pain she allowed her friend to inject IV Dilaudid at the site of her injury. 1. L hand cellulitis, abscess, infected tenosynovitis - Hand surgery following - S/P debridement 02/13 and 02/[address] Izquierdo - Cultures growing Strep pyogens, Strep anginosus, Prevotella, and MRSA - ID following - On Zosyn and Vanco - Pain control - Dressing change today 2. Substance abuse - Counseled on cessation 3. Genital herpes - Completed Valtrex 4. Tobacco abuse - Counseled on cessation - Nicotine patch DVT prophylaxis: SCDs, encourage ambulation Discharge Planning: Once cleared by hand surgery and ID
[2018-02-19] MEDS: Vancomycin Inj 1,250 MG in Sodium Chlor 0.9% Inj 250 ML IV.SIG SCH ×2 (01:30→15:08)
[2018-02-19] MEDS: Piperacil/Tazo 3.375 GM Premix 50 ML IV.SIG SCH ×4 (01:30→20:58)
[2018-02-19] MEDS: oxyCODONE/Acetaminophen 10/325 Tablet PO PRN ×6 (01:30→22:43)
[2018-02-19] MEDS: HYDROmorphone PF Inj 2 MG/ML Vial IV.PUSH PRN ×4 (04:18→21:35)
--- NOTE | 2018-02-19 11:17 | P.PNIM ---
Subjective Interval history: Pt seen and examined for f/u left hand/wrist cellulitis/abscess/tenosynovitis. Had dressing changed by hand surgery yesterday. She was told she would have another dressing change Sunday or at which time she'd likely be clear for discharge. However, the patient is concerned about being discharged as she lives in [place] and doesn't have transportation to come back up to the hand surgeon's office for outpatient dressing changes. She reports her pain is about the same. She denies CP, SOB, abdominal pain. She complains of some popping of her left ear. No fever or chills. No sore throat. Reports her labial infection is getting smaller and more firm. Physical Exam Vital signs: Vital Signs 02/18/18 11:28 02/18/18 12:00 02/18/18 12:27 Temperature 97.3 F L Pulse Rate 88 Respiratory Rate 14 12 16 Blood Pressure 115/58 L Pulse Oximetry 98 02/18/18 14:35 02/18/18 16:00 02/18/18 17:07 Temperature 98.3 F Pulse Rate 86 Respiratory Rate 14 18 16 Blood Pressure 128/66 Pulse Oximetry 97 02/18/18 20:00 02/18/18 22:16 02/18/18 23:49 Temperature 98.7 F Pulse Rate 84 Respiratory Rate 16 18 18 Blood Pressure 128/61 Pulse Oximetry 99 02/19/18 00:00 02/19/18 04:00 02/19/18 08:00 Temperature 98.5 F 97.9 F 97.9 F Pulse Rate 85 88 78 Respiratory Rate 18 18 16 Blood Pressure 130/78 121/56 L 157/86 H Pulse Oximetry 97 98 98 Intake & Output 02/18/18 02/19/18 02/19/18 18:59 06:59 18:59 Intake Total 625 / 625 817 / 817 50 / 50 Balance 625 / 625 817 / 817 50 / 50 Weight 66 kg Intake: IV 625 / 625 375 / 375 50 / 50 Zosyn 3.375 GM Premix 50 ML @ 100 / 100 100 / 100 50 / 50 100 mls/hr IV.SIG Q6H [facility] Rx#: [id number] Vancomycin Inj 1,250 MG In NS 525 / 525 275 / 275 Inj 250 ML @ 250 mls/hr IV.SIG Q12H [facility] Rx#:[id number] Oral 442 / 442 Other: Date of Last Bowel Movement 02/17/18 02/17/18 02/17/18 Narrative: GENERAL: WN, WD female resting in bed. Appears restless. SKIN: Warm and dry. HEART: RRR no m/r/g. LUNGS: CTAB without wheezes or crackles. ABDOMEN: +BS, soft, NT, ND. : R labial with small area of induration and some crusting. Not fluctuant. No purulent drainage when attempted to express. EXTREMITIES: Left wrist/hand wrapped. Able to wiggle all fingers. Sensation intact. NEURO: Awake and alert. Results - Labs CBC & Chem 7: 02/18/18 03:54 02/19/18 06:38 Laboratory Results - last 24 hr 02/19/18 06:38 Creatinine 0.86 Estimated GFR 72 L - Procedures 02/10: exploration, incision and drainage, excisional debridement skin, subcutaneous tissue, extensor tenosynovium 4th and 6th compartments left hand / wrist and forearm, wound vac 02/13: excisional debridement, left hand and wrist 02/15: wash, excisional debridement and bilayer meshed integra application left hand and wrist Assessment and Plan - Assessment (1) Abscess of tendon sheath, left forearm Code(s): M65.032 - Abscess of tendon sheath, left forearm Status: Acute (2) Abscess of left hand including fingers Code(s): L02.512 - Cutaneous abscess of left hand Status: Acute (3) Open wound of left wrist Code(s): S61.502A - Unspecified open wound of left wrist, initial encounter Status: Acute (4) Open wound of left hand Code(s): S61.402A - Unspecified open wound of left hand, initial encounter Status: Acute - Plan 42 year old female with history of HTN, anxiety, and substance abuse admitted 02/08 for L hand cellulitis and abscess. Reportedly a piece of furniture fell on her hand and due to excruciating pain she allowed her friend to inject IV Dilaudid at the site of her injury. 1. L hand cellulitis, abscess, infected tenosynovitis - Hand surgery following - S/P debridement 02/13 and 02/[address] Izquierdo - Cultures growing Strep pyogens, Strep anginosus, Prevotella, and MRSA - ID following - On Zosyn and Vanco - Pain control - Dressing changed yesterday and again Sunday or 2. Substance abuse - Counseled on cessation 3. Genital herpes - Completed Valtrex 4. Right labial infected follicular cyst - Improving on IV antibiotics 5. Tobacco abuse - Counseled on cessation - Nicotine patch DVT prophylaxis: SCDs, encourage ambulation Discharge Planning: Once cleared by hand surgery and ID. Will need a plan in place should IV antibiotics be needed long-term and if patient going to need to return to the area for outpatient wound care since she lives in [place].
[2018-02-19] MEDS ORDERED: Pharmacy Ordered Lab Info OTHER ONE (13:45)
--- NOTE | 2018-02-19 17:59 | P.PN ---
Subjective Interval history: complains of pain no fever no numbness Physical Exam Vital signs: Vital Signs 02/18/18 20:00 02/18/18 22:16 02/18/18 23:49 Temperature 98.7 F Pulse Rate 84 Respiratory Rate 16 18 18 Blood Pressure 128/61 Pulse Oximetry 99 02/19/18 00:00 02/19/18 04:00 02/19/18 08:00 Temperature 98.5 F 97.9 F 97.9 F Pulse Rate 85 88 78 Respiratory Rate 18 18 16 Blood Pressure 130/78 121/56 L 157/86 H Pulse Oximetry 97 98 98 02/19/18 12:00 02/19/18 16:00 Temperature 98.3 F 98.2 F Pulse Rate 93 H 68 Respiratory Rate 16 16 Blood Pressure 103/53 L 117/59 L Pulse Oximetry 97 96 Intake & Output 02/18/18 02/19/18 02/19/18 18:59 06:59 18:59 Intake Total 625 / 625 817 / 817 375 / 375 Balance 625 / 625 817 / 817 375 / 375 Weight 66 kg Intake: IV 625 / 625 375 / 375 375 / 375 Zosyn 3.375 GM Premix 50 ML @ 100 / 100 100 / 100 100 / 100 100 mls/hr IV.SIG Q6H [facility] Rx#: [id number] Vancomycin Inj 1,250 MG In NS 525 / 525 275 / 275 275 / 275 Inj 250 ML @ 250 mls/hr IV.SIG Q12H [facility] Rx#:[id number] Oral 442 / 442 Other: Date of Last Bowel Movement 02/17/18 02/17/18 02/17/18 Narrative: exam left upper extremity: intact splint and dressing intact circulation and sensation able to wiggle her fingers cultures are negative to date Results - Labs CBC & Chem 7: 02/18/18 03:54 02/19/18 06:38 Laboratory Results - last 24 hr 02/19/18 02/19/18 06:38 13:40 Creatinine 0.86 Estimated GFR 72 L Vancomycin Trough 12.3 H - Procedures 02/10: exploration, incision and drainage, excisional debridement skin, subcutaneous tissue, extensor tenosynovium 4th and 6th compartments left hand / wrist and forearm, wound vac 02/13: excisional debridement, left hand and wrist 02/15: wash, excisional debridement and bilayer meshed integra application left hand and wrist Assessment and Plan - Assessment (1) Abscess of tendon sheath, left forearm Code(s): M65.032 - Abscess of tendon sheath, left forearm Status: Acute - Plan 42 year old female s/p integra left hand and wrist POD 3 Plan: will change the dressing and splint tomorrow. continue with antibiotics based on ID recommendations will need weekly dressing changes after discharge can plan for discharge on if she can follow up with me in office weekly once.
[2018-02-20] MEDS: HYDROmorphone PF Inj 2 MG/ML Vial IV.PUSH PRN ×4 (01:38→14:42)
[2018-02-20] MEDS: Vancomycin Inj 1,250 MG in Sodium Chlor 0.9% Inj 250 ML IV.SIG SCH (01:38)
[2018-02-20] MEDS: oxyCODONE/Acetaminophen 10/325 Tablet PO PRN ×5 (02:46→21:39)
[2018-02-20] MEDS: Piperacil/Tazo 3.375 GM Premix 50 ML IV.SIG SCH ×2 (02:47→09:02)
--- NOTE | 2018-02-20 11:12 | P.PNIM ---
Subjective Interval history: Patient reports some cramping of the left arm and some forearm muscle tightness. No other complains. Physical Exam Vital signs: Vital Signs 02/19/18 12:00 02/19/18 16:00 02/19/18 19:36 Temperature 98.3 F 98.2 F Pulse Rate 93 H 68 Respiratory Rate 16 16 14 Blood Pressure 103/53 L 117/59 L Pulse Oximetry 97 96 02/19/18 20:00 02/20/18 00:00 02/20/18 04:00 Temperature 97.9 F 98.2 F 98.2 F Pulse Rate 93 H 79 54 L Respiratory Rate 18 18 18 Blood Pressure 139/58 L 130/70 139/67 Pulse Oximetry 99 98 98 02/20/18 07:04 02/20/18 08:00 Temperature 97.9 F Pulse Rate 80 Respiratory Rate 20 20 Blood Pressure 120/62 Pulse Oximetry 96 Intake & Output 02/19/18 02/20/18 02/20/18 18:59 06:59 18:59 Intake Total 1835 / 1835 375 / 375 50 / 50 Balance 1835 / 1835 375 / 375 50 / 50 Weight 65.6 kg Intake: IV 375 / 375 375 / 375 50 / 50 Zosyn 3.375 GM Premix 50 ML @ 100 / 100 100 / 100 50 / 50 100 mls/hr IV.SIG Q6H [facility] Rx#: [id number] Vancomycin Inj 1,250 MG In NS 275 / 275 275 / 275 Inj 250 ML @ 250 mls/hr IV.SIG Q12H [facility] Rx#:[id number] Oral 1460 / 1460 Other: # Voids 7 2 Date of Last Bowel Movement 02/17/18 02/18/18 # Bowel Movements 4 2 Narrative: GENERAL: This is a well-nourished, well-developed patient, in no apparent distress. CARDIOVASCULAR: Normal rate and regular rhythm without murmurs, gallops, or rubs. RESPIRATORY: Good respiratory efforts. Breath sounds equal and clear to auscultation bilaterally. GASTROINTESTINAL: Abdomen soft, non-tender, non-distended. Normal active bowel sounds MUSCULOSKELETAL: Left upper extremity in a splint. Neurovascularly intact distally in the fingers. Able to move the fingers. Capillary refill normal. NEURO: Alert & Oriented x4 to person, place, time, situation. Moves all ext x4 PSYCH: Appropriate mood and affect. Results - Labs CBC & Chem 7: 02/18/18 03:54 02/19/18 06:38 Laboratory Results - last 24 hr 02/19/18 13:40 Vancomycin Trough 12.3 H - Procedures 02/10: exploration, incision and drainage, excisional debridement skin, subcutaneous tissue, extensor tenosynovium 4th and 6th compartments left hand / wrist and forearm, wound vac 02/13: excisional debridement, left hand and wrist 02/15: wash, excisional debridement and bilayer meshed integra application left hand and wrist Assessment and Plan - Assessment (1) Abscess of tendon sheath, left forearm Code(s): M65.032 - Abscess of tendon sheath, left forearm Status: Acute (2) Abscess of left hand including fingers Code(s): L02.512 - Cutaneous abscess of left hand Status: Acute (3) Open wound of left wrist Code(s): S61.502A - Unspecified open wound of left wrist, initial encounter Status: Acute (4) Open wound of left hand Code(s): S61.402A - Unspecified open wound of left hand, initial encounter Status: Acute - Plan 42 year old female with history of HTN, anxiety, and substance abuse admitted 02/08 for L hand cellulitis and abscess. Reportedly a piece of furniture fell on her hand and due to excruciating pain she allowed her friend to inject IV Dilaudid at the site of her injury. 1. L hand cellulitis, abscess, infected tenosynovitis - Hand surgery following - S/P debridement 02/13 and 02/[address] Izquierdo - Cultures from outside hospital growing Strep pyogens, Strep anginosus, Prevotella, and MRSA -Discussed with infectious disease today. Patient is transitioned to oral antibiotics with Levaquin, Zosyn, and Flagyl. -Next dressing change per hand surgery. Should be okay to discharge tomorrow if okay with hand surgery. She will need outpatient follow-up. -We will discontinue IV Dilaudid. Continue Percocet as needed. 2. Substance abuse - Counseled on cessation 3. Genital herpes - Completed Valtrex 4. Right labial infected follicular cyst -Resolving on antibiotics 5. Tobacco abuse - Counseled on cessation - Nicotine patch DVT prophylaxis: SCDs, encourage ambulation Discharge Planning: Home once cleared by hand surgery
--- NOTE | 2018-02-20 13:10 | P.PNID ---
Subjective Remarks: Ms. Fitzgerald is a 42-year-old female with past medical history significant for hypertension, anxiety and substance abuse(denies any IV drug abuse but reports smoking and/or snorting different agents like cocaine and marijuana). With this background patient reports a piece of furniture fell on her hand and due to excruciating pain she let her friend inject intravenous Dilaudid into her left hand at the site of the injury. Subsequently this area of the hand became increasingly swollen red with areas of blackening and so she presented to the local hospital in [place] which is [facility]. Patient was accepted by Dr. Lu for transfer for hand surgery. Patient was evaluated by of hand surgery and underwent debridement in the operating room yesterday. In fact patient reports to me there is a plan for further debridement in the OR today. Intraoperative cultures are currently pending and patient has been started on empiric antibiotics. Prior to the patient arriving at [facility] she was treated with Zosyn as well as Zyvox at the other hospital. Infectious disease consulted for evaluation and management of left hand abscess , cellulitis possibly Tenosynovitis. Patient denies any prior drug abuse Denies any prior infection such as endocarditis or discitis. Denies any fevers chills or night sweats. Medical History: Abscess of left hand including fingers Anxiety HTN (hypertension) History of hysterectomy Shingles Substance abuse Surgical History: Surgical History History of cholecystectomy History of incision and drainage Overnight events reviewed Complains of occ pain at site of surgery. Headed to OR shortly for another debridement. No fevers No rash No diarrhea Able to wiggle fingers. Reviewed medical records from [place]: Patient admitted to IV drugs at other hospital. Cultures intraop from multiple I&Ds: Strep pyogens, Strep Angionosus, Prevotella , MRSA. Antibiotics: Zosyn IV Zyvox Lines: Lines ok Past Medical History: reviewed Allergies/Adverse Reactions: Allergies chocolate flavor [Chocolate] Adverse Reaction (Mild, Verified 02/08/18 23:38) Rash latex Adverse Reaction (Mild, Verified 02/08/18 23:38) Rash Objective Vital Signs 02/19/18 16:00 02/19/18 19:36 02/19/18 20:00 Temperature 98.2 F 97.9 F Pulse Rate 68 93 H Respiratory Rate 16 14 18 Blood Pressure 117/59 L 139/58 L Pulse Oximetry 96 99 02/20/18 00:00 02/20/18 04:00 02/20/18 07:04 Temperature 98.2 F 98.2 F Pulse Rate 79 54 L Respiratory Rate 18 18 20 Blood Pressure 130/70 139/67 Pulse Oximetry 98 98 02/20/18 08:00 Temperature 97.9 F Pulse Rate 80 Respiratory Rate 20 Blood Pressure 120/62 Pulse Oximetry 96 Intake & Output 02/19/18 02/20/18 02/20/18 18:59 06:59 18:59 Intake Total 1835 / 1835 375 / 375 50 / 50 Balance 1835 / 1835 375 / 375 50 / 50 Weight 65.6 kg Intake: IV 375 / 375 375 / 375 50 / 50 Zosyn 3.375 GM Premix 50 ML @ 100 / 100 100 / 100 50 / 50 100 mls/hr IV.SIG Q6H [facility] Rx#: [id number] Vancomycin Inj 1,250 MG In NS 275 / 275 275 / 275 Inj 250 ML @ 250 mls/hr IV.SIG Q12H [facility] Rx#:[id number] Oral 1460 / 1460 Other: # Voids 7 2 Date of Last Bowel Movement 02/17/18 02/18/18 # Bowel Movements 4 2 Lab - Chemistry Results 02/19/18 06:38 Creatinine 0.86 Estimated GFR 72 L Physical Exam: GENERAL: Well-nourished well-developed, not in acute distress SKIN: Cool and dry, no generalized rash HEAD: Atraumatic. Normocephalic. No temporal or scalp tenderness. EYES: Pupils equal round and reactive. Scleral icterus. No injection or drainage. No petechia ENT: Nothing abnormal detected NECK: Trachea midline. Supple, nontender, no meningeal signs. CARDIOVASCULAR: HS audible. RESPIRATORY: Clear to auscultation bilaterally. GASTROINTESTINAL: Abdomen soft nontender. MUSCULOSKELETAL: Left hand in postop dressing able to wiggle fingers. NEUROLOGICAL: Alert oriented 3. Nonfocal. Psych cooperative IV line sites ok. Assessment and Plan - Plan Left hand abscess/cellulitis Infected tenosynovitis per dw Hand surgeon Substance abuse Cultures intraop from multiple I&Ds: Strep pyogens, Strep Angionosus, Prevotella , MRSA. Recommendations: DC Zosyn IV Continue IV Zyvox Start oral levaquin Start flagyl oral. Follow clinically If tolerates above regimen will consider discharge on oral antibiotics and follow up with . Needs oral antibiotic for total of 2 weeks additionally from date of discharge if discharged on . If tolerates this regimen ok to DC from ID standpoint in am. dw Will sign off please call back if any change in clinical condition or questions.
[2018-02-20] MEDS: metroNIDAZOLE 500 MG Tablet PO SCH ×2 (14:41→21:38)
[2018-02-20] MEDS: levoFLOXacin 500 MG Tablet PO SCH (14:41)
[2018-02-20] MEDS: Linezolid 600 MG Tablet PO SCH (14:43)
--- NOTE | 2018-02-20 20:45 | P.PN ---
Subjective Interval history: complains of mild pain complaint with limb elevation Physical Exam Vital signs: Vital Signs 02/20/18 00:00 02/20/18 04:00 02/20/18 07:04 Temperature 98.2 F 98.2 F Pulse Rate 79 54 L Respiratory Rate 18 18 20 Blood Pressure 130/70 139/67 Pulse Oximetry 98 98 02/20/18 08:00 02/20/18 12:00 02/20/18 16:00 Temperature 97.9 F 97.8 F 97.9 F Pulse Rate 80 82 101 H Respiratory Rate 20 19 20 Blood Pressure 120/62 114/61 133/69 Pulse Oximetry 96 99 100 Intake & Output 02/20/18 02/20/18 02/21/18 06:59 18:59 06:59 Intake Total 375 / 375 1170 / 1170 Balance 375 / 375 1170 / 1170 Weight 65.6 kg Intake: IV 375 / 375 50 / 50 Zosyn 3.375 GM Premix 50 ML @ 100 / 100 50 / 50 100 mls/hr IV.SIG Q6H [facility] Rx#: [id number] Vancomycin Inj 1,250 MG In NS 275 / 275 Inj 250 ML @ 250 mls/hr IV.SIG Q12H [facility] Rx#:[id number] Oral 1120 / 1120 Other: # Voids 2 6 Date of Last Bowel Movement 02/18/18 # Bowel Movements 2 5 Narrative: examination of the left upper extremity: integra in place mild surrounding swelling stiffness of the fingers noted intact distal sensation and circulation cultures: negative to date Results - Labs CBC & Chem 7: 02/18/18 03:54 02/19/18 06:38 Microbiology 02/13/18 17:25 Wound - Hand Fungal Smear - Final No fungal elements seen 02/13/18 17:25 Wound - Hand Fungal Culture - Preliminary No growth in 1 week 02/13/18 17:25 Wound - Hand Acid Fast Bacilli Smear - Final No acid fast bacilli seen 02/13/18 17:25 Wound - Hand Mycobacterial Culture - Preliminary No growth in 1 week - Procedures 02/10: exploration, incision and drainage, excisional debridement skin, subcutaneous tissue, extensor tenosynovium 4th and 6th compartments left hand / wrist and forearm, wound vac 02/13: excisional debridement, left hand and wrist 02/15: wash, excisional debridement and bilayer meshed integra application left hand and wrist Assessment and Plan - Assessment (1) Abscess of tendon sheath, left forearm Code(s): M65.032 - Abscess of tendon sheath, left forearm Status: Acute - Plan 42 year old female s/p integra left hand and wrist POD 3 Plan: dressing changed. new volar short arm splint applied. continue with antibiotics based on ID recommendations cleared for discharge from hand surgery follow up in office in one week time for dressing change.. call [phone] for appointment.
[2018-02-21] MEDS: oxyCODONE/Acetaminophen 10/325 Tablet PO PRN ×4 (01:39→14:19)
[2018-02-21] MEDS: Linezolid 600 MG Tablet PO SCH ×2 (02:00→14:19)
[2018-02-21] MEDS: metroNIDAZOLE 500 MG Tablet PO SCH ×2 (05:35→14:19)
--- NOTE | 2018-02-21 10:37 | P.DS ---
Date of admission: 02/08/18 21:05 Primary care physician: UNKNOWN Brief History from admission: HPI from the admitting physician: 42-year-old female with a history of hypertension,'s anxiety and substance abuse was a transfer from [facility] accepted by Dr. Harrell to be evaluated by hand surgery for a left hand and forearm infection and abscess formation. Patient was treated at [facility] and had an I&D completed to the left hand, forearm and antecubital area after injecting opium, Dilaudid as well as cocaine into the site where the abscess formed. Cultures did grew Streptococcus pyogenes and MRSA, patient was treated with Zosyn and Zyvox. Patient examined on arrival and patient is complaining of 10/10, throbbing, constant pain the the left hand with radiation up her arm, worse with movement and better with pain medication, with associate fevers. Patient has a very nasty wound to the right hand with purulent drainage and some pin point necrotic areas. Denies any chest pain or sob. Patient update on day of discharge: Patient reports she is feeling okay today. We discussed discharge planning at length. She will follow up outpatient with hand surgery. DS: Diagnosis - Discharge Diagnosis (1) Abscess of tendon sheath, left forearm Status: Acute (2) Abscess of left hand including fingers Status: Acute (3) Open wound of left wrist Status: Acute (4) Open wound of left hand Status: Acute DS: Medications - Discharge Medications Prescriptions: ibuprofen 800 mg PO Q8HR PRN #30 tab PRN Reason: Pain levofloxacin 500 mg PO Q24H #14 tab linezolid [Zyvox] 600 mg PO Q12H #28 tab methocarbamol [Robaxin] 500 mg PO QID PRN #10 tab PRN Reason: Muscle Spasm metronidazole 500 mg PO Q8HR #42 tab DS: Summary Hospital Course: 42 year old female with history of HTN, anxiety, and substance abuse admitted 02/08 for L hand cellulitis and abscess. Reportedly a piece of furniture fell on her hand and due to excruciating pain she allowed her friend to inject IV Dilaudid at the site of her injury. Evaluation and treatment course detailed below: 1. L hand cellulitis, abscess, infected tenosynovitis - Hand surgery followed the patient. - S/P debridement 02/13 and 02/[address] Izquierdo - Cultures from outside hospital growing Strep pyogens, Strep anginosus, Prevotella, and MRSA -Discussed with infectious disease. Patient is transitioned to oral antibiotics with Levaquin, Zyvox and Flagyl. Patient will continue antibiotics outpatient for an additional 10 days. She is to follow-up with hand surgery next week for dressing changes. 2. Substance abuse - Counseled on cessation 3. Genital herpes - Completed Valtrex 4. Right labial infected follicular cyst -Resolving on antibiotics 5. Tobacco abuse - Counseled on cessation - Time Spent with Patient Total time spent providing and/or coordinating discharge services: Greater than 30 minutes - Quality: VTE Deep Vein Thrombosis/Pulmonary Embolism Present on Admission: No Exam Vital signs: Vital Signs 02/20/18 12:00 02/20/18 16:00 02/20/18 20:00 Temperature 97.8 F 97.9 F 98.5 F Pulse Rate 82 101 H 81 Respiratory Rate 19 20 18 Blood Pressure 114/61 133/69 113/62 Pulse Oximetry 99 100 100 02/21/18 00:00 02/21/18 02:40 02/21/18 04:00 Temperature 98.2 F 98 F Pulse Rate 91 H 87 Respiratory Rate 18 18 18 Blood Pressure 121/74 127/76 Pulse Oximetry 98 98 02/21/18 08:00 Temperature 98.3 F Pulse Rate 79 Respiratory Rate 17 Blood Pressure 105/55 L Pulse Oximetry 97 Intake & Output 02/20/18 02/21/18 02/21/18 18:59 06:59 18:59 Intake Total 1170 / 1170 Balance 1170 / 1170 Weight 64.5 kg Intake: IV 50 / 50 Zosyn 3.375 GM Premix 50 ML @ 50 / 50 100 mls/hr IV.SIG Q6H [facility] Rx#: [id number] Oral 1120 / 1120 Other: # Voids 6 4 Date of Last Bowel Movement 02/21/18 # Bowel Movements 5 2 Narrative: GENERAL: This is a well-nourished, well-developed patient, in no apparent distress. CARDIOVASCULAR: Normal rate and regular rhythm without murmurs, gallops, or rubs. RESPIRATORY: Good respiratory efforts. Breath sounds equal and clear to auscultation bilaterally. GASTROINTESTINAL: Abdomen soft, non-tender, non-distended. Normal active bowel sounds MUSCULOSKELETAL: Left upper extremity in a splint. Neurovascularly intact distally in the fingers. Able to move the fingers. Capillary refill normal. NEURO: Alert & Oriented x4 to person, place, time, situation. Moves all ext x4 PSYCH: Appropriate mood and affect. Results Procedures completed during hospitalization: 02/10: exploration, incision and drainage, excisional debridement skin, subcutaneous tissue, extensor tenosynovium 4th and 6th compartments left hand / wrist and forearm, wound vac 02/13: excisional debridement, left hand and wrist 02/15: wash, excisional debridement and bilayer meshed integra application left hand and wrist Labs on day of discharge: Labs from last 24 hours 02/21/18 04:00 Creatinine 0.92 Estimated GFR 67 L Preliminary micro results at discharge 02/13/18 17:25 Fungal Culture - Preliminary Wound - Hand No growth in 1 week 02/13/18 17:25 Mycobacterial Culture - Preliminary Wound - Hand No growth in 1 week 02/09/18 13:35 Fungal Culture - Preliminary Tissue - Wrist No growth in 1 week 02/09/18 13:35 Mycobacterial Culture - Preliminary Tissue - Wrist No growth in 1 week Discharge Plan - Discharge Disposition Patient Disposition: 01 Discharge Home - Discharge Condition Condition: Good - Discharge Order Discharge Orders: Discharge Order (Routine); Ordered 02/21/18 Ordered By: Scott Owen - Physicians Team Primary Care Provider: UNKNOWN, Attending Provider: Scott Owen Other Providers: Ayana Christianson MD ; Jose Guadalupe Izquierdo MD - Rxs /Orders / Referrals /Forms Prescriptions: New levofloxacin 500 mg Tablet 500 mg PO Q24H Qty: 14 RF: 0 linezolid [Zyvox] 600 mg Tablet 600 mg PO Q12H Qty: 28 RF: 0 methocarbamol [Robaxin] 500 mg Tablet 500 mg PO QID PRN (Reason: Muscle Spasm) Qty: 10 RF: 0 metronidazole 500 mg Tablet 500 mg PO Q8HR Qty: 42 RF: 0 Changed ibuprofen 800 mg Tablet 800 mg PO Q8HR PRN (Reason: Pain) Qty: 30 Changed from: 800 mg oral four times daily as needed Referrals: UNKNOWN, [Primary Care Provider] - See Instructions (CALL [phone] 8AM THE DAY YOU WOULD LIKE TO BE SEEN. [address] [place] [id number]) - Discharge Instructions Patient Printed Instructions: Metronidazole (By mouth), Methocarbamol (By mouth ), Levofloxacin (By mouth), Linezolid (By mouth), Incision and Drainage (DC) Additional Instructions: Follow up in office in one week time for dressing change.. call [phone] for appointment.
[2018-02-21 13:13] VITALS: BP 118/74; PULSE 69; RESP 18; TEMP 97.7; O2SAT 98
[2018-02-21] MEDS ORDERED: Pharmacy Ordered Lab Info OTHER ONE (13:45)
[2018-02-21] MEDS: levoFLOXacin 500 MG Tablet PO SCH (14:19)
== END 2018-02-21 15:50 | disposition home or self-care (01) ==
LOC: N05 21:05
PROVIDERS: ADMIT Family Medicine; ATTEND Family Medicine